=== PATIENT | female | born 1940 | race African-American/Black ===

== ENCOUNTER 2019-03-03 13:10 | Inpatient (IN) | payer OTHER, MEDICAID ==
[~2019-03-03] VITALS: Ht 154.9 cm; Wt 71.7 kg
[~2019-03-03 13:10] MED LIST: ACET-2619 PO; ALBU3SOL83 IH; APIX2.5 PO; ASCO500T45 PO; BISA-213 RC; CLON0.1T42 PO; D50SYR IVP; Foam Dressing TP; GLU1I IVP; GLUC-805 FS; HUMSLIDE SUBQ; HYDR-1098 PO; HYDR-5122 PO; LACT10CA PO; MAGN400S60 PO; METO25TA PO; METR500T1 PO; MIRABULK PO; OSC500 PO; ROC1PM IV; VITA1TAB44 PO
[2019-03-03 13:17] VITALS: BP 194/77
--- NOTE | 2019-03-03 13:51 | NUR ---
PATIENT IS BROUGHT TO ED FROM DIALYSIS CENTER. PT HAS SCHEDULED DIALYSIS TODAY BUT UNABLE TO ACCESS PORT ON L ANTERIOR CHEST WALL. SKIN IS PINK/WARM/DRY; AAOX4; LUNGS CLEAR BL; HR EVEN AND REGULAR; PT DENIES ANY FEVER, CP, SOB, OR COUGH AT THIS TIME; PATIENT STATES PAIN OF 0/10 AT THIS TIME; VSS; PATIENT POSITIONED FOR COMFORT; HOB ELEVATED; BEDRAILS UP X2; BED DOWN. ER MD MADE AWARE OF PT STATUS. PMH:DM, ERSD,HTN, CAD
[2019-03-03 14:03] LABS: BASOPHILS # (AUTO) 0.1 K/uL (0.00-0.22); BASOPHILS % (AUTO) 0.8 % (0.0-2.0); EOSINOPHILS # (AUTO) 0.2 K/uL (0-0.4); EOSINOPHILS % (AUTO) 2.1 % (0.0-4.0); HEMATOCRIT 36.9 % (36-48); HEMOGLOBIN 11.8 g/dL (12.0-16.0); LYMPHOCYTES # (AUTO) 2.2 K/uL (2.5-16.5); LYMPHOCYTES % (AUTO) 22.6 % (20.5-51.1); MEAN CORPUSCULAR HEMOGLOBIN 30 pg (27-31); MEAN CORPUSCULAR HGB CONC 32 g/dL (33-37); MEAN CORPUSCULAR VOLUME 94.1 fL (80-94); MONOCYTES # (AUTO) 0.8 K/uL (0.8-1.0); MONOCYTES % (AUTO) 8.8 % (1.7-9.3); NEUTROPHILS # (AUTO) 6.3 K/uL (1.8-7.7); NEUTROPHILS % (AUTO) 65.7 % (42.2-75.2); PLATELET COUNT (AUTO) 353 K/uL (140-450); RED BLOOD CELL COUNT(AUTO) 3.92 MIL/uL (4.20-5.40); RED CELL DISTRIBUTION WIDTH 17.3 % (11.6-13.7); WHITE BLOOD COUNT (AUTO) 9.6 K/uL (4.8-10.8)
[2019-03-03 14:17] LABS: ANION GAP 13.7 (8-16); CHLORIDE 106 mmol/L (98-107); CREATININE 3.6 mg/dL (0.6-1.3); GLUCOSE 109 mg/dL (74-106); POTASSIUM 4.7 mmol/L (3.5-5.1); PROTHROMBIN TIME 9.1 secs (10.8-13.4); SODIUM SERUM 141 mmol/L (136-145); UREA NITROGEN, BLOOD 40 mg/dL (7-18)
[2019-03-03 14:22] LABS: ALBUMIN 2.3 g/dL (3.4-5.0); ASPARTATE AMINOTRANSFERASE 16 U/L (15-37); TOTAL BILIRUBIN 0.2 mg/dL (0.0-1.0)
[2019-03-03] MEDS ORDERED: ACETAMINOPHEN 325 MG TAB PO PRN (15:00)
[2019-03-03] MEDS ORDERED: HYDROcodone/APAP 7.5/325 MG 1 TAB PO PRN (15:00)
[2019-03-03] MEDS ORDERED: ONDANSETRON 4 MG/2 ML VIAL IVP PRN (15:00)
[2019-03-03] MEDS ORDERED: NACL 0.9% 1,000 ML IV SCH (15:00)
[2019-03-03] MEDS ORDERED: BISA-213 RC (15:21)
[2019-03-03] MEDS ORDERED: HEPA500056 (15:21)
[2019-03-03] MEDS ORDERED: HYDR-5122 PO (15:40)
[2019-03-03] MEDS ORDERED: MIRABULK PO (15:40)
[2019-03-03] MEDS ORDERED: INSU100S53 SC ×2 (15:40→20:35)
[2019-03-03] MEDS ORDERED: VITA1TAB44 PO (15:40)
[2019-03-03] MEDS ORDERED: MAGN400S60 PO (15:40)
[2019-03-03] MEDS ORDERED: POLY17PD46 PO (15:40)
[2019-03-03] MEDS ORDERED: LISI-420 PO (15:40)
[2019-03-03] MEDS ORDERED: LYR50 PO (15:40)
[2019-03-03] MEDS ORDERED: PHO667 PO (15:40)
[2019-03-03] MEDS ORDERED: cloNIDine 0.1 MG TAB PO SCH (16:00)
[2019-03-03] MEDS ORDERED: METOPROLOL 5 MG/5 ML VIAL IV SCH (16:00)
[2019-03-03 16:02] LABS: FREE T4 (FREE THYROXINE) 0.82 ng/dL (0.76-1.46); MAGNESIUM 2.1 mg/dL (1.8-2.4); PHOSPHORUS 3.3 mg/dL (2.5-4.9); THYROID STIMULATING HORMONE 2.01 uIU/mL (0.34-3.74)
[2019-03-03 16:22] VITALS: BP 147/64
--- NOTE | 2019-03-03 16:22 | NUR ---
PATIENT ARRIVED UNIT VIA GURNEY ACCOMPANIED BY ER NURSE WILLIAM. PATIENT IS AAOX4, SPEAKS [place]. RESPIRATION EVEN AND UNLABORED ON RA. DENIED PAIN, DIZZINESS AND SOB. STATED THAT SHE IS VERY HUNGRY SINCE SHE HASN'T EAT FROM LUNCH. NO SIGNS OF DISTRESS NOTED. IV ON R AC 22G, DATED, CLEAN AND INTACT, SL. PATIENT IS CONTINENT AND SAID "I USED DIAPER AT HOME SINCE I DONT HAVE MY LEGS. I CAN'T WALK TO THE BATHROOM." DIALYSIS DEVICE ON L CHEST, SIGN POSTED FOR NO VENIPUNCTURE AND BLOOD PRESSURES ON L ARM. PATIENT HAS CLOSED WOUNDS ON BUTTOCK, L AND RIGHT THIGHS, PICTURES TAKEN. PATIENT HAS BOTH LEGS AMPUTATION. ORIENTED PATIENT TO THE ROOM, DEMONSTRATED TO PATIENT HOW TO USE THE CALL LIGHT, LIGHT REMOTE, BED REMOTE, TELEPHONE, AND TV. MRSA NARES TAKEN AND VITAL SIGNS TAKEN. SAFETY MEASURES IN PLACE. BED IN LOW POSITION AND CALL LIGHT WITHIN REACH. FALL RISK PROTOCOL IN PLACE AND BED ALARM ACTIVATED. INSTRUCTED PATIENT TO USE THE CALL LIGHT FOR ANY ASSISTANCE AND PATIENT SAID OK.
--- NOTE | 2019-03-03 16:26 | NUR ---
STARTED IVF PER MD ORDER, PATIENT TOLERATED WELL. PATIENT IS RESTING ON BED AT THIS TIME. SAFETY MEASURES IN PLACE. BED IN LOW POSITION AND CALL LIGHT WITHIN REACH. INSTRUCTED PATIENT TO USE THE CALL LIGHT FOR ANY ASSISTANCE AND PATIENT WAS AWARE.
--- NOTE | 2019-03-03 16:28 | NUR ---
ADPatient will be admitted to care of DR. RODRIGUEZ. Admited to MS. Will go to room 117. Belongings list completed. Report to CORINNA.
--- NOTE | 2019-03-03 16:40 | NUR ---
RECEIVED CRITICAL LAB FOR TROPONIN 0.[address] NOLASCO WAS AWARE AND NO ORDER RECEIVED AT THIS TIME.
--- NOTE | 2019-03-03 17:35 | NUR ---
PATIENT HAS 1 SOFT MODERATE YELLOW BM. INDUSTRIAL CLEANER CLEANED PATIENT. APPLIED Z-GUARD ON BUTTOCK, L AND R THIGHS, COVERED WITH OPTIFOAMS. WOUND CARE EDUCATION PROVIDED TO PATIENT AND PATIENT VERBALIZED UNDERSTANDING. PATIENT IS RESTING ON BED AT THIS TIME. NO SIGNS OF DISTRESS NOTED. SAFETY MEASURES IN PLACE. BED IN LOW POSITION AND CALL LIGHT WITHIN REACH. BED ALARM ACTIVATED. INSTRUCTED PATIENT TO USE THE CALL LIGHT FOR ANY ASSISTANCE AND PATIENT WAS AWARE.
[2019-03-03] MEDS ORDERED: hydrALAZINE 20 MG/ML VIAL IVP SCH (18:00)
--- NOTE | 2019-03-03 18:30 | NUR ---
CHECKED BP PRIOR TO MED ADMINISTER, BP 136/55, PULSE 72, ADMINISTERED MED VIA IVP PER MD ORDER, MED EDUCATION PROVIDED TO PATIENT AND PATIENT VERBALIZED UNDERSTANDING. PATIENT IS TALKING TO CLARIBEL BURKS BY BEDSIDE. NO SIGNS OF DISTRESS NOTED. SAFETY MEASURES IN PLACE. BED IN LOW POSITION AND CALL LIGHT WITHIN REACH. INSTRUCTED PATIENT TO USE THE CALL LIGHT FOR ANY ASSISTANCE AND PATIENT WAS AWARE.
[2019-03-03] MEDS ORDERED: DEXTROSE 50% 50 ML SYR IVP PRN (19:15)
--- NOTE | 2019-03-03 19:24 | NUR ---
ENDORSED PATIENT AT BEDSIDE TO FRONT TENDER NURSE FOR CONTINUITY OF CARE. PATIENT AWAKE AND TALKING TO CLARIBEL BURKS AT BEDSIDE. NO SIGNS OF DISTRESS NOTED. PATIENT IS IN STABLE CONDITION. SAFETY MEASURES IN PLACE. BED IN LOW POSITION AND CALL LIGHT WITHIN REACH.
--- NOTE | 2019-03-03 19:30 | NUR ---
RECEIVED FROM AM RN IN BED AWAKE AND ALERT. WATCHING TV. CARE PLANS FOR THE NIGHT DISCUSSED WITH HER. CALL LIGHT IWTH IN REACH FOR ANY HELP SHE MAY NEED. ABLE TO VERBALIZE SIMPLE NEEDS IN [place]. MALE VISITOR PRESENT. NO COMPLAINTS DONE AT THIS TIME.
[2019-03-03] MEDS ORDERED: HYDR-1098 PO (20:35)
[2019-03-03] MEDS ORDERED: CLON0.1T42 PO (20:35)
[2019-03-03] MEDS ORDERED: cloNIDine 0.1 MG TAB PO PRN (20:40)
[2019-03-03] MEDS ORDERED: NON-FORMULARY ITEM (Hydralazine HCl (Hydralazine Hcl) 100 MG) PO SCH (21:00)
[2019-03-03] MEDS: BLOOD GLUCOSE MONITORING 1 DEV DEV FS SCH (21:25)
[2019-03-03] MEDS: METOPROLOL 25 MG TAB PO SCH (21:26)
[2019-03-03] MEDS: PREGABALIN 50 MG CAP PO SCH (21:26)
[2019-03-03] MEDS: DOCUSATE SODIUM 100 MG GELCAP PO SCH (21:26)
[2019-03-03] MEDS: HYDRAGUARD CREAM TP SCH (21:27)
[2019-03-03] MEDS: INSULIN LISPRO SLIDING SCALE 100 UNITS/ML VIAL SUBQ PRN (21:32)
[2019-03-03] MEDS: INSULIN LANTUS 100 UNITS/ML 10 ML VIAL SUBQ SCH (21:34)
[2019-03-03 21:42] VITALS: BP 118/57
--- NOTE | 2019-03-03 23:25 | NUR ---
EKG DONE AT THIS TIME. PT. CLEANED UP FROM BM . TOTAL CARE RT WITH GENERALIZED WEAKNESS. WITH BILATERAL BKA. ABLE TO VERBALIZE SIMPLE NEEDS. ABLE TO USE CALL LIGHT FOR HELP.
[2019-03-04] MEDS: hydrALAZINE 25 MG TAB PO SCH ×4 (00:47→22:50)
[2019-03-04 00:48] VITALS: BP 133/49
--- NOTE | 2019-03-04 00:54 | NUR ---
P.O. MEDICATION TAKEN WELL. NO COMPLAINTS OF ANY PAIN DONE THIS SHIFT YET. CALL LIGHT WITH IN REACH. ENCOURAGED TO CALL FOR ANY HELP SHE MIGHT NEED. PER PT. SON IS THE ONE GIVING CONSENT FOR ANY PROCEDURES DONE TO HER. LEFT MESSAGE TO CLARIBEL BURKS FOR CONSENT MD MONCADA,Janak ORDERED / TUNNEL REMOVAL AND PLACEMENT OF NEW ONE. CHARGE NURSE AWARE.
--- NOTE | 2019-03-04 03:24 | NUR ---
SLEEPING. NO RESTLESSNESS. CALL LIGHT AT BEDSIDE WITH IN REACH.
[2019-03-04 05:33] VITALS: BP 144/61
[2019-03-04] MEDS: BLOOD GLUCOSE MONITORING 1 DEV DEV FS SCH ×4 (05:41→20:55)
[2019-03-04] MEDS ORDERED: DEXT 5% /NACL 0.9% 1,000 ML IV SCH (05:55)
[2019-03-04] MEDS: FAMOTIDINE 20 MG/2 ML VIAL IV SCH (06:46)
--- NOTE | 2019-03-04 07:20 | NUR ---
REPORT RECEIVED FROM NURSE SCHREIBER, PT SLEEPING, APPEARS COMFORTABLE. NO S/S OF ACUTE DISTRESS NOTED AT THIS TIME, CALL LIGHT AND PERSONAL ITEMS WITHIN EASY REACH, SAFETY AND FALL PRECAUTIONS IN PLACE, WILL CONTINUE TO MONITOR.
--- NOTE | 2019-03-04 07:30 | NUR ---
ENDORSED TO AM RN IN BED AWAKE AND ALERT. ABLE TO VERBALIZE NEEDS WELL. NO COMPLAINTS DONE .
[2019-03-04 07:31] LABS: BASOPHILS # (AUTO) 0.1 K/uL (0.00-0.22); BASOPHILS % (AUTO) 0.9 % (0.0-2.0); EOSINOPHILS # (AUTO) 0.2 K/uL (0-0.4); EOSINOPHILS % (AUTO) 2.3 % (0.0-4.0); HEMATOCRIT 33.7 % (36-48); HEMOGLOBIN 10.6 g/dL (12.0-16.0); LYMPHOCYTES # (AUTO) 1.3 K/uL (2.5-16.5); LYMPHOCYTES % (AUTO) 17.1 % (20.5-51.1); MEAN CORPUSCULAR HEMOGLOBIN 30 pg (27-31); MEAN CORPUSCULAR HGB CONC 32 g/dL (33-37); MEAN CORPUSCULAR VOLUME 94.1 fL (80-94); MONOCYTES # (AUTO) 0.8 K/uL (0.8-1.0); MONOCYTES % (AUTO) 10.3 % (1.7-9.3); NEUTROPHILS # (AUTO) 5.2 K/uL (1.8-7.7); NEUTROPHILS % (AUTO) 69.4 % (42.2-75.2); PLATELET COUNT (AUTO) 326 K/uL (140-450); RED BLOOD CELL COUNT(AUTO) 3.58 MIL/uL (4.20-5.40); RED CELL DISTRIBUTION WIDTH 17.3 % (11.6-13.7); WHITE BLOOD COUNT (AUTO) 7.5 K/uL (4.8-10.8)
[2019-03-04 08:00] VITALS: BP 147/67
[2019-03-04] MEDS: HYDRAGUARD CREAM TP SCH ×2 (08:52→22:50)
[2019-03-04] MEDS: METOPROLOL 25 MG TAB PO SCH ×2 (08:52→22:50)
[2019-03-04] MEDS: DOCUSATE SODIUM 100 MG GELCAP PO SCH ×2 (08:52→22:50)
[2019-03-04] MEDS: CALCIUM CARBONATE 500 MG TAB PO SCH (08:53)
[2019-03-04] MEDS: LISINOPRIL 20 MG TAB PO SCH (08:53)
[2019-03-04] MEDS: VIT-B COMP/VIT-C/FOLIC ACID 1 TAB PO SCH (08:53)
[2019-03-04] MEDS: PREGABALIN 50 MG CAP PO SCH ×2 (08:53→22:50)
--- NOTE | 2019-03-04 09:30 | NUR ---
PT A/O ABLE TO COMMUNICATE NEEDS, FAMILY AT BEDSIDE PT DENIES PAIN OR DISCOMFORT, NO S/S OF ACUTE DISTRESS NOTED AT THIS TIME, CALL LIGHT AND PERSONAL ITEMS WITHIN EASY REACH, SAFETY AND FALL PRECAUTIONS IN PLACE, WILL CONTINUE TO MONITOR.
[2019-03-04 09:36] LABS: CHLORIDE 106 mmol/L (98-107); MAGNESIUM 2.1 mg/dL (1.8-2.4); PHOSPHORUS 3.6 mg/dL (2.5-4.9); POTASSIUM 4.6 mmol/L (3.5-5.1); SODIUM SERUM 140 mmol/L (136-145)
[2019-03-04 09:38] LABS: GLUCOSE 130 mg/dL (74-106); UREA NITROGEN, BLOOD 47 mg/dL (7-18)
[2019-03-04] MEDS ORDERED: BUPIVACAINE-MPF/EPI 0.25% 30 ML VIAL INJ ONE (10:25)
[2019-03-04] MEDS ORDERED: LIDOCAINE/EPI MPF 1%1:200000 30 ML VIAL INJ ONE (10:25)
--- NOTE | 2019-03-04 11:30 | NUR ---
PT REMAINS A/O ABLE TO COMMUNICATE NEED, EDUCATED THE PT REGARDING RECTAL TUBE, PT AGREEABLE, RECTAL TUBE INSERTED PER ORDER W BROWN SOFT STOOL COLLECTING, PT TOLERATED PROCEDURE WELL, SKIN CARE PROVIDED. DENIES PAIN, NO S/S OF ACUTE DISTRESS NOTED AT THIS TIME, CALL LIGHT AND PERSONAL ITEMS WITHIN EASY REACH, SAFETY AND FALL PRECAUTIONS IN PLACE, WILL CONTINUE TO MONITOR.
[2019-03-04 11:39] LABS: ANION GAP 17.2 (8-16); CARBON DIOXIDE 21.4 mmol/L (21-32)
--- NOTE | 2019-03-04 11:45 | NUR ---
PT REMAINS AO ABLE TO COMMUNICATE NEEDS, TRANSPORTED OFF UNIT TO SURGICAL SERVICES VIA BED. NO S/S OF ACUTE DISTRESS NOTED AT THIS TIME.
[2019-03-04] MEDS ORDERED: ONDANSETRON 4 MG/2 ML VIAL IVP PRN (12:05)
[2019-03-04] MEDS ORDERED: BLOOD GLUCOSE MONITORING 1 DEV DEV FS SCH (12:05)
[2019-03-04] MEDS ORDERED: MIDAZOLAM 2 MG/2 ML VIAL ONE (12:09)
[2019-03-04] MEDS ORDERED: fentaNYL 0.05 MG/ML VIAL ONE (12:10)
--- NOTE | 2019-03-04 13:21 | NUR ---
PT WAS ADMITTED FROM [facility] A/[facility] WITH A DX OF DYSFUNCTIONAL TUNNEL CATH. PT HAS A HX OF ESRD, HTN CHF AND DM . DR MONCADA CONSULTED AND NEPHRO DR HSU FOLLOWING FOR HD NEEDS Addendum: 03/06/19 at 1340 by Anna Briseno DC PLANNING 03/05/19 DR MONCADA PLACED NEW RIGHT IJ TUNNELED PERM-A-CATH PLACEMENT , PLAN TO HAVE DIALYSIS TONIGHT D/C PLAN TO GO BACK TO [facility]
--- NOTE | 2019-03-04 13:32 | NUR ---
Pt returned from surgical services via bed, Pt remains A/O able to communicate needs, tunneled catheter in place to r chest, small dressing to L chest at prior cath site in place, dry and intact. Pt denies pain, denies sob, assisted to reposition for comfort. Fall and safety precaution in place, Call light and personal items within easy reach, no s/s of acute distress noted at this time. Will continue to monitor.
[2019-03-04 13:35] VITALS: BP 177/71
[2019-03-04] MEDS: NACL 0.9% 1,000 ML IV SCH (14:37)
--- NOTE | 2019-03-04 14:40 | NUR ---
PATIENT HAS BEEN SCREENED AND CATEGORIZED MODERATE NUTRITION RISK. PATIENT WILL BE SEEN WITHIN 3-5 DAYS OF ADMISSION. 03/06/19 03/08/[address]
--- NOTE | 2019-03-04 15:30 | NUR ---
Pt sleeping at this time, appears comfortable,fall and safety precautions remain in place, call light and personal items within easy reach,will continue to monitor.
[2019-03-04] MEDS: INSULIN LISPRO SLIDING SCALE 100 UNITS/ML VIAL SUBQ PRN (16:52)
[2019-03-04 17:11] VITALS: BP 108/58
--- NOTE | 2019-03-04 17:30 | NUR ---
Pt resting w her eyes closed at this time, states she is praying, no s/s of acute distress noted, fall and safety precautions remain in place, call light and personal items within easy reach, no s/s of acute distress noted at this time. Will continue to monitor.
--- NOTE | 2019-03-04 18:30 | NUR ---
HD nurse at bedside, provided with consent, orders and additional supplies as requested.
--- NOTE | 2019-03-04 19:36 | NUR ---
Pt remains awake a/o able to communicate needs. Pt denies pain or discomfort, no s/s of acute distress noted at this time. HD nurse at bedside. Safety and fall precautions maintained in place. Call light and personal items within easy reach, no s/s of acute distress noted at this time. Report endorsed to oncoming nurse
--- NOTE | 2019-03-04 19:40 | NUR ---
RECEIVED REPORT FROM AM SHIFT NURSE. PATIENT ALERT AND AWAKE. ABLE TO MAKE NEEDS KNOWN. DENIES PAIN NOR DISCOMFORT. NO ACUTE DISTRESS NOTED AT THIS TIME. HD NURSE AT BEDSIDE. HD ONGOING. SAFETY MEASURES OBSERVED. BED IN LOW POSITION. CALL LIGHT WITHIN REACH. WILL CONTINUE TO MONITOR.
[2019-03-04 20:00] VITALS: BP 126/55
--- NOTE | 2019-03-04 20:02 | NUR ---
RECEIVED PATIENT ON 1L NASAL CANNULA, PULSE OX SAT 99%. PATIENT RECEIVING DIALYSIS AT THIS TIME. NO ACUTE RESPIRATORY DISTRESS NOTED AT THIS TIME. WILL CONTINUE TO MONITOR.
--- NOTE | 2019-03-04 21:30 | NUR ---
PATIENT AWAKE IN BED. HD STILL ONGOING. HD NURSE AT BEDSIDE. NO ACUTE RESPIRATORY DISTRESS NOTED. ON 1LPM VIA NC AT 98%. WILL CONTINUE TO MONITOR.
--- NOTE | 2019-03-04 22:30 | NUR ---
HD DONE WITH 2.5 L OUTPUT PER HD NURSE.
[2019-03-04] MEDS: INSULIN LANTUS 100 UNITS/ML 10 ML VIAL SUBQ SCH (22:50)
--- NOTE | 2019-03-04 22:50 | NUR ---
PATIENT REFUSED TO TAKE ALL HER DUE MEDICATIONS INCLUDING LANTUS. BLOOD SUGAR [id number]. PATIENT JUST WANTS TO SLEEP, DOESN'T WANT TO BE BOTHERED. DR. TSANG, RESIDENT AWARE.
--- NOTE | 2019-03-04 23:00 | NUR ---
PT REFUSED TO BE TURN, REPOSITION IN BED. SHE JUST WANTS TO SLEEP FOR SHE SAID SHE GOT TIRED DUE TO THE HD MACHINE BEEN SO NOISY.
[2019-03-05] VITALS: BP 150/60
--- NOTE | 2019-03-05 00:30 | NUR ---
SLEEPING AT THIS TIME. NO S/S OF ANY DISCOMFORT NOR DISTRESS NOTED WILL CONTINUE TO MONITOR,.
--- NOTE | 2019-03-05 02:30 | NUR ---
PT AWAKE. ABLE TO REPOSITION PT FOR COMFORT. CLEANED AND KEPT DRY. RECTAL TUBE IN PLACED WITH SCANTY BROWN SOFT STOOL.
[2019-03-05 04:37] VITALS: BP 115/64
--- NOTE | 2019-03-05 04:42 | NUR ---
CHECKED PATIENT'S BLOOD PRESSURE. NOTED TO BE 115/64. DUE FOR HYDRALAZINE 100MG. DR. TSANG, RESIDENT MADE AWARE. SAID TO HOLD THE MEDICATION.
[2019-03-05] MEDS: hydrALAZINE 25 MG TAB PO SCH ×3 (04:46→21:49)
[2019-03-05] MEDS: BLOOD GLUCOSE MONITORING 1 DEV DEV FS SCH ×4 (06:14→21:46)
--- NOTE | 2019-03-05 06:14 | NUR ---
BLOOD SUGAR WAS CHECKED RESULT 66. PT IS AWAKE,ALERT AND, ORIENTED . GIVEN SOME JUICE. WILL CONTINUE TO MONITOR.
[2019-03-05] MEDS: FAMOTIDINE 20 MG/2 ML VIAL IV SCH (06:18)
--- NOTE | 2019-03-05 07:10 | NUR ---
RECEIVED BEDSIDE REPORT FROM TRIM CARPENTER NURSE, PT IS ASLEEP, NO S/S OF ACUTE DISTRESS NOTED, PT IS ON ROOM AIR. SKIN INTACT ASIDE FROM OLD HEALED SACRAL WOUND. HYDRAGUARD IS ORDERED. IV SITE IN THE R AC 20 G, SALINE LOCK. R IJ TUNNEL HD CATH NOTED, PLACED YESTERDAY BY DR MONCADA. PT HAS BILAT BKA'S. RECTAL TUBE PRESENT, SOFT BM NOTED. FALL PRECAUTIONS IN PLACE, CALL LIGHT IS WITHIN REACH.
[2019-03-05 07:17] LABS: BASOPHILS # (AUTO) 0.1 K/uL (0.00-0.22); BASOPHILS % (AUTO) 0.9 % (0.0-2.0); EOSINOPHILS # (AUTO) 0.2 K/uL (0-0.4); EOSINOPHILS % (AUTO) 1.8 % (0.0-4.0); HEMATOCRIT 32.2 % (36-48); HEMOGLOBIN 10.5 g/dL (12.0-16.0); LYMPHOCYTES # (AUTO) 1.8 K/uL (2.5-16.5); LYMPHOCYTES % (AUTO) 21.2 % (20.5-51.1); MEAN CORPUSCULAR HEMOGLOBIN 30 pg (27-31); MEAN CORPUSCULAR HGB CONC 33 g/dL (33-37); MEAN CORPUSCULAR VOLUME 93.2 fL (80-94); MONOCYTES # (AUTO) 0.9 K/uL (0.8-1.0); MONOCYTES % (AUTO) 10.5 % (1.7-9.3); NEUTROPHILS # (AUTO) 5.7 K/uL (1.8-7.7); NEUTROPHILS % (AUTO) 65.6 % (42.2-75.2); PLATELET COUNT (AUTO) 245 K/uL (140-450); RED BLOOD CELL COUNT(AUTO) 3.46 MIL/uL (4.20-5.40); RED CELL DISTRIBUTION WIDTH 17.5 % (11.6-13.7); WHITE BLOOD COUNT (AUTO) 8.6 K/uL (4.8-10.8)
--- NOTE | 2019-03-05 07:20 | NUR ---
ENDORSED PT IN STABLE CONDITION TO AM NURSE FOR CONTINUITY OF CARE.
[2019-03-05 07:28] LABS: ANION GAP 14.6 (8-16); CARBON DIOXIDE 26.4 mmol/L (21-32); CHLORIDE 103 mmol/L (98-107); CREATININE 2.8 mg/dL (0.6-1.3); GLUCOSE 81 mg/dL (74-106); SODIUM SERUM 140 mmol/L (136-145); UREA NITROGEN, BLOOD 27 mg/dL (7-18)
[2019-03-05 07:35] LABS: MAGNESIUM 1.8 mg/dL (1.8-2.4); PHOSPHORUS 2.5 mg/dL (2.5-4.9)
[2019-03-05 08:00] VITALS: BP 182/73
--- NOTE | 2019-03-05 08:49 | NUR ---
PT SEEN BY DR ROUSE
[2019-03-05] MEDS: HYDRAGUARD CREAM TP SCH ×2 (09:00→21:49)
[2019-03-05] MEDS: DOCUSATE SODIUM 100 MG GELCAP PO SCH ×2 (09:00→21:00)
[2019-03-05] MEDS: CALCIUM CARBONATE 500 MG TAB PO SCH (09:06)
[2019-03-05] MEDS: PREGABALIN 50 MG CAP PO SCH ×2 (09:06→22:02)
[2019-03-05] MEDS: VIT-B COMP/VIT-C/FOLIC ACID 1 TAB PO SCH (09:06)
[2019-03-05] MEDS: METOPROLOL 25 MG TAB PO SCH ×2 (09:06→21:50)
[2019-03-05] MEDS: LISINOPRIL 20 MG TAB PO SCH (09:07)
--- NOTE | 2019-03-05 09:26 | NUR ---
AM MEDS ADMINISTERED, PT TOLERATED WELL. SHE REFUSED THE COLACE.
--- NOTE | 2019-03-05 10:01 | NUR ---
RECEIVED A CALL FROM PT'S RACE STARTER, DR HSU, ASKING WHETHER PT HAD DIALYSIS YESTERDAY. I INFORMED HIM THAT PT HAD DIALYSIS LAST NIGHT.
--- NOTE | 2019-03-05 10:40 | NUR ---
WOUND CARE EVALUATION NOTE: REASON FOR EVALUATION: SACRAL WOUNDS SKIN ASSESSMENT DONE WITH THIS 78 Y/O FEMALE PT ADMITTED FROM SNF TO [facility] WITH INITIAL DX NON-FUNCTION DIALYSIS CATHETER. PAST MEDICAL HX OF HTN, HLD, CHF, DMII, ESRD on HD AND PT. ADMITTED WITH MULTIPLE PRESSURE ULCERS. ALL ABOVE INFORMATION OBTAINED FROM ADMISSION H&P. AND PT. PT IS AWAKE. SKIN IS WARM AND DRY. PT HAS RECTAL TUBING AND LEAKAGE NOTICE, PRIMARY RN NOTIFIED. PLAN OF CARE DISCUSSED WITH PRIMARY RN AND PT. PT. VERBALIZING UNDERSTANDING. INTEGUMENTARY: -DRY SKIN TO ABDOMINAL WALL AND BILATERAL THIGHS, -BILATERAL BKA STUMPS HEALED SCARS DRY AND CLEAN. -RIGHT LATERAL NECK 2 SUTURES, DRY AND IN PLACE -RIGHT CHEST CATH. DRESSING DCI -MULTIPLE PRESSURE ULCERS REMODELING STAGE WITH IRRITATION ON ALL CLOSED WOUND 100% PINK SCARS-REMODELING STAGE: SITE 1. SACRALCOCCYX (6X7CM), SITE 2. RIGHT ISCHIUM (4X3CM) AND SITE 3. LEFT ISCHIUM (5X6CM) AREAS MOIST WITH IRRITATION. JAMILAH WOUND SKIN MOIST, INTACT RECOMMENDATIONS: -CLEANS WITH NS, PAT DRY, APPLY OPTIFOAM TO SACRALCOCCYX, RIGHT ISCHIUM AND LEFT ISCHIUM QD AND PRN IF SOILING -PLEASE KEEP SKIN DRY AND CLEAN AT ALL TIMES, CHECK RECTAL TUBING PRN FOR POSITION AND LEACKAGE. -OFFLOAD BILATERAL THIGHS BY PLACING PILLOWS UNDER CALVES UNLESS OTHERWISE CONTRAINDICATED -PRESSURE REDISTRIBUTION SURFACE THERAPY BY POSITION WEDGE/PILLOWS -TURN AND REPOSITION Q2H, OFFLOAD SACRALCOCCYX /ISCHIUM BY TURNING RIGHT AND LEFT Q2 HOURS -CONTINUE TO FOLLOW RD RECOMMENDATIONS ALL ABOVE RECOMMENDATIONS DISCUSSED WITH PRIMARY RN PLEASE CONTACT WOUND CARE NURSE FOR ANY QUESTION AND CHANGE OF WOUND CONDITION.
--- NOTE | 2019-03-05 11:40 | NUR ---
REASSESSED PT'S BP, 165/76 AT THIS TIME. Addendum: 03/05/19 at 1154 by Yenifer Duque RN DR ROUSE IS AWARE
[2019-03-05] MEDS: FOAM DRESSING TP SCH (13:00)
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
--- NOTE | 2019-03-05 13:58 | NUR ---
PT RESTING COMFORTABLY IN BED, NO S/S OF ACUTE DISTRESS, PT ATE ABOUT 75% OF HER LUNCH
[2019-03-05] MEDS: NACL 0.9% 1,000 ML IV SCH (14:07)
[2019-03-05] MEDS ORDERED: Z-GUARD PASTE TP ONE (15:20)
--- NOTE | 2019-03-05 15:35 | NUR ---
P.T. NOTES P.T. EVAL COMPLETED; Pt NON AMBULATORY, USES [facility] FOR W/C TRANSFERS IN SNF; ENDORSED TO NURSING.
--- NOTE | 2019-03-05 15:51 | NUR ---
PT CLEANED UP AND CHANGED. PT'S STOOL NOTED TO BE THICK AND PASTY, NOT LOOSE. RECTAL BAG REMOVED, IT WAS NOT PERFORMING ITS FUNCTION. PT ALSO C/O THE RECTAL BAG BEING VERY UNCOMFORTABLE AND WANTED IT OUT. BED LINENS CHANGED. Z-GUARD AND OPTIFOAM DRESSINGS APPLIED ONTO THE DRY WOUND SCARS. PT TOLERATED WELL.
[2019-03-05 16:00] VITALS: BP 187/73
--- NOTE | 2019-03-05 16:45 | NUR ---
PT'S BP IS 187/73. PRN CLONIDINE 0.1 MG PO ADMINISTERED. WILL REASSESS BP IN AN HOUR. Addendum: 03/05/19 at 1652 by Yenifer Duque RN DR RASHEED IS AWARE
--- NOTE | 2019-03-05 17:57 | NUR ---
BP RECHECK 146/64 AT THIS TIME. PT EATING DINNER AND VISITING WITH A FAMILY MEMBER. NO S/S OF ACUTE DISTRESS.
--- NOTE | 2019-03-05 18:17 | NUR ---
PAGED DR HSU TO ASK IF PT NEEDS TO HAVE DIALYSIS TOMORROW. WAITING FOR CALL BACK. Addendum: 03/05/19 at 1933 by Yenifer Duque RN DR HSU DID NOT RETURN MY PAGE. ENDORSED TO INVESTIGATIVE RESEARCH SPECIALIST NURSE. RESIDENT IS AWARE.
--- NOTE | 2019-03-05 19:25 | NUR ---
RECEIVED PT ON RA, SP02 98% WITH CLEAR BREATH SOUNDS. NO RESPIRATORY DISTRESS NOTED. WILL CONTINUE TO MONITOR PT.
--- NOTE | 2019-03-05 19:25 | NUR ---
ENDORSED PT TO DIRECTOR CORRECTIONAL AGENCY NURSE IN STABLE CONDITION.
--- NOTE | 2019-03-05 19:40 | NUR ---
SEEN PT AWAKE, ALERT AND ORIENTED RESTING IN BED. CALL LIGHT W/IN REACH.
--- NOTE | 2019-03-05 21:25 | NUR ---
SPOKE TO DIALYSIS NURSE REGARDING IF THERE'S ORDER FOR DIALYSIS IN AM. INFORMED HER THERE'S NO ORDER YET AND THEY CALLED DR HSU AND NO CALL BACK YET BUT RESIDENTS AWARE AND SAID THEY'LL FOLLOW UP.
[2019-03-05 21:40] VITALS: BP 159/58
--- NOTE | 2019-03-05 21:40 | NUR ---
SEEN PT AWAKE, ALERT AND ORIENTED WATCHING TV. INITIAL ASSESSMENT DONE. VITAL SIGNS CHECKED. IVF INFUSING WELL. PT DENIES ANY DISCOMFORT. MEDICATIONS GIVEN ONE BY ONE PER PT'S REQUEST W/ APPLE JUICE FOR SMALL PILLS AND APPLE SAUCE FOR BIG PILLS. TEACHINGS. PT TOLERATED MEDICATION WELL. PT REFUSED TO BE REPOSITIONED RIGHT NOW. CALL LIGHT W/IN REACH.
[2019-03-05] MEDS: INSULIN LISPRO SLIDING SCALE 100 UNITS/ML VIAL SUBQ PRN (21:58)
[2019-03-05] MEDS: INSULIN LANTUS 100 UNITS/ML 10 ML VIAL SUBQ SCH (22:00)
--- NOTE | 2019-03-06 00:35 | NUR ---
SEEN PT STILL AWAKE. ASKED PT IF SHE WANTS TO BE TURNED. SHE SAID "OK". PT SAID SHE ALSO NEEDS TO BE CHANGED. STEWART MARTE CAME AND THE MOMENT PT TURNED, PT HAD BROWN, LOOSE BM ON GOING FOR A FEW MINUTES AND IN BETWEEN PT COMPLAINING OF PAIN AND DISCOMFORT AND WANTS TO BE DONE. INFORMED PT THAT SHE'S STILL GOING AND NEEDS TO BE CLEANED FIRST. PT KEEP MOANING AND GROANING AND FINALLY, BM STOPPED. PERICARE RENDERED. PT REPOSITIONED ON HER RIGHT SIDE FOR NOW. WILL CONTINUE TO MONITOR.
--- NOTE | 2019-03-06 02:05 | NUR ---
SEEN PT ASLEEP. TOLD PT SHE NEEDS TO BE REPOSITIONED. PT GOT UPSET AND REFUSED. TEACHINGS PROVIDED ABOUT REPOSITIONING BUT STILL REFUSED. WILL CONTINUE TO MONITOR.
[2019-03-06 04:40] VITALS: BP 170/70
--- NOTE | 2019-03-06 04:40 | NUR ---
SEEN PT AWAKE, HAVING HER AM CARE. PT HAD ANOTHER LOOSE BM. CREAM APPLIED AND DRESSING REINFORCED. PT REPOSITIONED FOR COMFORT. VITAL SIGNS CHECKED. UC=265/70. PT GIVEN HYDRALAZINE ORDERED. TEACHINGS PROVIDED. PT KEPT COMFORTABLE.
[2019-03-06] MEDS: hydrALAZINE 25 MG TAB PO SCH ×2 (04:43→13:00)
[2019-03-06 06:00] VITALS: BP 159/60
--- NOTE | 2019-03-06 06:00 | NUR ---
SEEN PT AWAKE. TALENT SOURCING SPECIALIST JUST HUNTER AM LABS. BP RECHECKED:159/60. PT DENIES ANY DISCOMFORT.
[2019-03-06] MEDS: BLOOD GLUCOSE MONITORING 1 DEV DEV FS SCH ×2 (06:55→11:30)
[2019-03-06] MEDS: FAMOTIDINE 20 MG/2 ML VIAL IV SCH (06:56)
--- NOTE | 2019-03-06 06:59 | NUR ---
PT'S BLOOD SUGAR CHECKED:72. WILL GIVE APPLE JUICE. PT REPOSITIONED ON HER BACK. IV PEPCID GIVEN ORDERED.
--- NOTE | 2019-03-06 07:03 | NUR ---
WILL ENDORSE CARE TO DAYSHIFT NURSE.
--- NOTE | 2019-03-06 07:04 | NUR ---
RECEIVED REPORT FROM ASSISTANT SALES MANAGER NURSE ALVA FOR CONTINUITY OF CARE. RESPIRATIONS EVEN AND UNLABORED, ROOM AIR. IV INTACT AND PATENT. SAFETY MEASURES IN PLACE. BED IN LOW POSITION. BED ALARM ON. CALL LIGHT AT BEDSIDE. WILL CONTINUE TO MONITOR.
[2019-03-06 07:18] LABS: BASOPHILS # (AUTO) 0.1 K/uL (0.00-0.22); BASOPHILS % (AUTO) 1.3 % (0.0-2.0); EOSINOPHILS # (AUTO) 0.2 K/uL (0-0.4); EOSINOPHILS % (AUTO) 2.5 % (0.0-4.0); HEMATOCRIT 32.2 % (36-48); HEMOGLOBIN 10.2 g/dL (12.0-16.0); LYMPHOCYTES # (AUTO) 1.6 K/uL (2.5-16.5); LYMPHOCYTES % (AUTO) 24.6 % (20.5-51.1); MAGNESIUM 1.8 mg/dL (1.8-2.4); MEAN CORPUSCULAR HEMOGLOBIN 30 pg (27-31); MEAN CORPUSCULAR HGB CONC 32 g/dL (33-37); MEAN CORPUSCULAR VOLUME 93.3 fL (80-94); MONOCYTES # (AUTO) 0.7 K/uL (0.8-1.0); MONOCYTES % (AUTO) 11.5 % (1.7-9.3); NEUTROPHILS # (AUTO) 3.8 K/uL (1.8-7.7); NEUTROPHILS % (AUTO) 60.1 % (42.2-75.2); PHOSPHORUS 3.4 mg/dL (2.5-4.9); PLATELET COUNT (AUTO) 250 K/uL (140-450); RED BLOOD CELL COUNT(AUTO) 3.45 MIL/uL (4.20-5.40); RED CELL DISTRIBUTION WIDTH 17.1 % (11.6-13.7); WHITE BLOOD COUNT (AUTO) 6.3 K/uL (4.8-10.8)
[2019-03-06 07:21] LABS: ANION GAP 15.4 (8-16); CHLORIDE 103 mmol/L (98-107); CREATININE 3.4 mg/dL (0.6-1.3); GLUCOSE 70 mg/dL (74-106); POTASSIUM 4.4 mmol/L (3.5-5.1); SODIUM SERUM 138 mmol/L (136-145); UREA NITROGEN, BLOOD 34 mg/dL (7-18)
[2019-03-06] MEDS: METOPROLOL 25 MG TAB PO SCH (09:00)
[2019-03-06] MEDS: LISINOPRIL 20 MG TAB PO SCH (09:00)
[2019-03-06] MEDS: DOCUSATE SODIUM 100 MG GELCAP PO SCH (09:00)
[2019-03-06] MEDS: PREGABALIN 50 MG CAP PO SCH (09:13)
[2019-03-06] MEDS: HYDRAGUARD CREAM TP SCH (09:14)
[2019-03-06] MEDS: VIT-B COMP/VIT-C/FOLIC ACID 1 TAB PO SCH (09:14)
[2019-03-06] MEDS: CALCIUM CARBONATE 500 MG TAB PO SCH (09:14)
--- NOTE | 2019-03-06 09:24 | NUR ---
GAVE ORDERED DUE MEDICATIONS AT THIS TIME. PT IN STABLE CONDITION.
--- NOTE | 2019-03-06 10:07 | NUR ---
CHANGED, CLEANED AND REPOSITIONED PT. PT TOLERATED WELL. BED IN LOW POSITION. BED ALARM ON. CALL LIGHT AT BEDSIDE. WILL CONTINUE TO MONITOR.
--- NOTE | 2019-03-06 12:10 | NUR ---
Discharge Note: Clinicals were faxed to [facility]. ADAM contacted Sofi in admissions and Sofi stated that patient will be accepted in Room 16 Bed B [phone]. Per Sofi, patient's attending physician will be Dr. Ocampo. ADAM contacted [facility] for transportation. Transportation will arrive at 4:00PM through [employer]. Transportation Ref#[id number]. ADAM informed patient's nurse Cindy. No further needs identified.
[2019-03-06] MEDS: FOAM DRESSING TP SCH (13:05)
--- NOTE | 2019-03-06 13:08 | NUR ---
PT LYING IN BED FINISHING EATING LUNCH AT THIS TIME. PT IN STABLE CONDITION. BED IN LOW POSITION. BED ALARM ON. CALL LIGHT AT BEDSIDE. WILL CONTINUE TO MONITOR.
--- NOTE | 2019-03-06 13:48 | NUR ---
Discharge Planning Note: Padmaja from [facility] came to case management/social work administrator office and informed me they cannot accept patient today after all. She stated they are renovating patient's room. Padmaja stated they can accept patient tomorrow 03/07/19, made aware. I called and spoke with Aletha from [facility] [employer] Ref#[id number] , I requested to cancel transportation, Hands And Dial Inspector Anna made aware.
[2019-03-06] MEDS: NACL 0.9% 1,000 ML IV SCH (13:55)
--- NOTE | 2019-03-06 14:00 | NUR ---
GAVE REPORT TO LADY STAFF Pappas AT [facility]. ALL QUESTIONS ANSWERED AT THIS TIME.
--- NOTE | 2019-03-06 14:10 | NUR ---
Discharge Planning Note: Padmaja from [facility] came to case management/manager social media office once again this time she stated they can accept patient after all today because renovations done on patient's room at [facility] will be completed today before patient arrives. I called and spoke with Bina from [facility] [employer] Ref#[id number] , [employer] will order picker/assembler patient today at 5pm, patient's nurse Cindy made aware.
--- NOTE | 2019-03-06 15:03 | NUR ---
PT CHANGED AND CLEANED AT THIS TIME TO PREPARE FOR TRANSPORT TO [facility]. PT TOLERATED WELL. BED IN LOW POSITION. BED ALARM ON. CALL LIGHT AT BEDSIDE. WILL CONTINUE TO MONITOR.
[2019-03-06 16:00] VITALS: BP 155/72
--- NOTE | 2019-03-06 16:45 | NUR ---
GAVE DISCHARGE INSTRUCTIONS, PT VERBALIZED UNDERSTANDING. IV REMOVED, LUMEN INTACT. ID BAND REMOVED. TRANSPORT INSTRUCTIONS GIVEN TO TRANSPORT TEAM. ALL QUESTIONS ANSWERED AT THIS TIME. PT PLACED ON [place] IN STABLE CONDITION.
[2019-03-07] MEDS ORDERED: EPOETIN ALFA 10,000 UNITS/ML VIAL SUBQ SCH (09:00)
== END 2019-03-06 18:45 | DRG 280 ==
LOC: MED 13:10 → MTU 15:00
PROVIDERS: ADMIT General Practice; ATTEND General Practice
PROC: 0JPVXXZ Removal of Tunneled Vascular Access Device from Upper Extremity Subcutaneous Tissue and Fascia, External Approach (ICD-10-PCS; 2019-03-04)
PROC: 0JH60XZ Insertion of Tunneled Vascular Access Device into Chest Subcutaneous Tissue and Fascia, Open Approach (ICD-10-PCS; 2019-03-04)
PROC: 02PYX3Z Removal of Infusion Device from Great Vessel, External Approach (ICD-10-PCS; 2019-03-04)
PROC: 02HV33Z Insertion of Infusion Device into Superior Vena Cava, Percutaneous Approach (ICD-10-PCS; 2019-03-04)
PROC: B548ZZA Ultrasonography of Superior Vena Cava, Guidance (ICD-10-PCS; 2019-03-04)
PROC: B5181ZA Fluoroscopy of Superior Vena Cava using Low Osmolar Contrast, Guidance (ICD-10-PCS; 2019-03-04)
PROC: 5A1D70Z Performance of Urinary Filtration, Intermittent, Less than 6 Hours Per Day (ICD-10-PCS; principal; 2019-03-04 11:30)
DX: T82.898A Other specified complication of vascular prosthetic devices, implants and grafts, initial encounter (principal); I50.43 Acute on chronic combined systolic (congestive) and diastolic (congestive) heart failure; I21.A1 Myocardial infarction type 2; N17.0 Acute kidney failure with tubular necrosis; N18.6 End stage renal disease; I13.2 Hypertensive heart and chronic kidney disease with heart failure and with stage 5 chronic kidney disease, or end stage renal disease; E11.22 Type 2 diabetes mellitus with diabetic chronic kidney disease; Z99.2 Dependence on renal dialysis; D64.9 Anemia, unspecified; E11.51 Type 2 diabetes mellitus with diabetic peripheral angiopathy without gangrene; E78.5 Hyperlipidemia, unspecified; I25.2 Old myocardial infarction; I45.10 Unspecified right bundle-branch block; M19.90 Unspecified osteoarthritis, unspecified site; I16.0 Hypertensive urgency; L89.152 Pressure ulcer of sacral region, stage 2; E11.40 Type 2 diabetes mellitus with diabetic neuropathy, unspecified; D63.8 Anemia in other chronic diseases classified elsewhere; Z83.3 Family history of diabetes mellitus; Z87.440 Personal history of urinary (tract) infections; Z89.511 Acquired absence of right leg below knee; Z89.512 Acquired absence of left leg below knee; Z90.49 Acquired absence of other specified parts of digestive tract; Z90.710 Acquired absence of both cervix and uterus; Z95.1 Presence of aortocoronary bypass graft; Z88.8 Allergy status to other drugs, medicaments and biological substances; Z88.0 Allergy status to penicillin; Z91.013 Allergy to seafood; Y83.8 Other surgical procedures as the cause of abnormal reaction of the patient, or of later complication, without mention of misadventure at the time of the procedure; Y92.89 Other specified places as the place of occurrence of the external cause
CPT/HCPCS: 36415; 71045; 80048; 80053; 82150; 82948; 83036; 83690; 83735; 83880; 84100; 84439; 84443; 84484; 85025; 85610; 85730; 87081; 93005; 93970; 96374; 97163-GP; 99285; C1750; C1894; J0360; J1644; J1815; J2001; J2250; J2405; J3010; J3490; J7030; J7042; Q0092

== ENCOUNTER 2019-04-06 19:36 | Emergency (ER) | payer OTHER, MEDICAID ==
[~2019-04-06] VITALS: Ht 165.1 cm; Wt 70.3 kg
[2019-04-06 19:36] VITALS: BP 181/81
[~2019-04-06 19:36] MED LIST changes: -ACET-2619 PO; -ALBU3SOL83 IH; -APIX2.5 PO; -ASCO500T45 PO; -BISA-213 RC; -D50SYR IVP; -Foam Dressing TP; -GLU1I IVP; -GLUC-805 FS; -HUMSLIDE SUBQ; -HYDR-5122 PO; +INSU100S53 SC; -LACT10CA PO; +LISI-420 PO; +LYR50 PO; -MAGN400S60 PO; -METR500T1 PO; -MIRABULK PO; +POLY17PD46 PO; -ROC1PM IV
[2019-04-06] MEDS: LIDOCAINE 5% 1 EA PATCH TP STA (20:07)
[2019-04-06 20:38] LABS: BASOPHILS # (AUTO) 0.1 K/uL (0.00-0.22); BASOPHILS % (AUTO) 0.9 % (0.0-2.0); EOSINOPHILS # (AUTO) 0.3 K/uL (0-0.4); EOSINOPHILS % (AUTO) 3.8 % (0.0-4.0); HEMATOCRIT 33.7 % (36-48); HEMOGLOBIN 10.7 g/dL (12.0-16.0); LYMPHOCYTES # (AUTO) 1.9 K/uL (2.5-16.5); LYMPHOCYTES % (AUTO) 23.3 % (20.5-51.1); MEAN CORPUSCULAR HEMOGLOBIN 30 pg (27-31); MEAN CORPUSCULAR HGB CONC 32 g/dL (33-37); MEAN CORPUSCULAR VOLUME 94.3 fL (80-94); MONOCYTES # (AUTO) 0.8 K/uL (0.8-1.0); MONOCYTES % (AUTO) 9.8 % (1.7-9.3); NEUTROPHILS % (AUTO) 62.2 % (42.2-75.2); PLATELET COUNT (AUTO) 290 K/uL (140-450); RED BLOOD CELL COUNT(AUTO) 3.57 MIL/uL (4.20-5.40); RED CELL DISTRIBUTION WIDTH 17.8 % (11.6-13.7)
[2019-04-06] MEDS ORDERED: GABAPENTIN 100 MG CAP ONE ×2 (20:49→21:10)
[2019-04-06] MEDS ORDERED: LIDOCAINE JELLY 2% 30 ML TUBE TP ONE (21:02)
[2019-04-06] MEDS ORDERED: LIDOCAINE/PRILOCAINE 2.5% 5 GM TUBE TP ONE (21:02)
[2019-04-06] MEDS: GABAPENTIN 300 MG CAP PO STA (21:18)
[2019-04-06] MEDS: LIDOCAINE/PRILOCAINE 2.5% 5 GM TUBE TP ONE ×2 (21:29)
[2019-04-06 21:43] LABS: ANION GAP 17.3 (8-16); CARBON DIOXIDE 22.8 mmol/L (21-32); CHLORIDE 105 mmol/L (98-107); GLUCOSE 109 mg/dL (74-106); POTASSIUM 4.1 mmol/L (3.5-5.1); SODIUM SERUM 141 mmol/L (136-145); UREA NITROGEN, BLOOD 36 mg/dL (7-18)
[2019-04-06 21:46] LABS: CREATININE 4.6 mg/dL (0.6-1.3)
[2019-04-06 21:47] LABS: ALBUMIN 2.9 g/dL (3.4-5.0); AMYLASE 77 U/L (25-115); ASPARTATE AMINOTRANSFERASE 8 U/L (15-37); LIPASE 116 U/L (73-393); TOTAL BILIRUBIN 0.3 mg/dL (0.0-1.0)
[2019-04-06 23:23] LABS: APPEARANCE,URINE CLEAR (CLEAR); BILIRUBIN,URINE NEGATIVE (NEGATIVE); BLOOD, URINE 1+ (NEGATIVE); COLOR,URINE YELLOW (YELLOW); LEUKOCYTE ESTERASE ,URINE 3+ (NEGATIVE); NITRITE, URINE NEGATIVE (NEGATIVE); UGLUCOSE NEGATIVE (NEGATIVE)
[2019-04-07 00:05] LABS: RBC,URINE 11-20 (MOD) /HPF (0-5)
[2019-04-07 00:06] LABS: WBC,URINE TOO MANY TO COUNT /HPF (0-5)
[2019-04-07] MEDS ORDERED: CIPROFLOXACIN 250 MG TAB ONE (02:49)
[2019-04-07] MEDS: CIPROFLOXACIN 250 MG TAB PO SCH (02:50)
[2019-04-07 04:34] VITALS: BP 165/75
== END 2019-04-07 04:34 ==
LOC: MED 19:36
DX: N39.0 Urinary tract infection, site not specified (principal); M06.9 Rheumatoid arthritis, unspecified; I13.11 Hypertensive heart and chronic kidney disease without heart failure, with stage 5 chronic kidney disease, or end stage renal disease; E11.22 Type 2 diabetes mellitus with diabetic chronic kidney disease; N18.6 End stage renal disease; Z99.2 Dependence on renal dialysis; Z79.899 Other long term (current) drug therapy; Z88.0 Allergy status to penicillin; Z91.013 Allergy to seafood; Z88.8 Allergy status to other drugs, medicaments and biological substances
CPT/HCPCS: 36415; 71045; 72170; 80053; 81001; 82150; 83690; 84484; 85025; 87086; 87186; 93005; 99284; Q0092

== ENCOUNTER 2019-07-09 18:34 | Inpatient (IN) | payer OTHER, MEDICAID ==
[~2019-07-09] VITALS: Ht 132.1 cm; Wt 73.0 kg
[2019-07-09 18:41] VITALS: BP 191/88
--- NOTE | 2019-07-09 18:46 | NUR ---
78 Y/O F HEENAA FROM [facility] SNF C/C GENERALIZED WEAKNESS. PT A/OX4. PER PT WEAKNESS AND BODYACHES 10/10 CONTINOUS PAIN SINCE THIS MORNING. PT WITH RIGHT UPPER CHEST DIALYSIS CATH, PER PT SHE GETS DIALYSIS [place] TWICE A WEEK: SUNDAY/SUNDAY. ALLERGIES,HX,RX ---- SEE CHART / PACKET FROM FACILITY
--- NOTE | 2019-07-09 19:08 | NUR ---
Dr. Bernard examining patient.
[2019-07-09 20:01] LABS: BASOPHILS % (AUTO) 0.4 % (0.0-2.0); EOSINOPHILS # (AUTO) 0.2 K/uL (0-0.4); EOSINOPHILS % (AUTO) 3.1 % (0.0-4.0); HEMATOCRIT 40.1 % (36-48); HEMOGLOBIN 12.7 g/dL (12.0-16.0); LYMPHOCYTES # (AUTO) 1.6 K/uL (2.5-16.5); LYMPHOCYTES % (AUTO) 20.6 % (20.5-51.1); MEAN CORPUSCULAR HEMOGLOBIN 30 pg (27-31); MEAN CORPUSCULAR HGB CONC 32 g/dL (33-37); MEAN CORPUSCULAR VOLUME 95.4 fL (80-94); MONOCYTES # (AUTO) 0.5 K/uL (0.8-1.0); MONOCYTES % (AUTO) 6.6 % (1.7-9.3); NEUTROPHILS # (AUTO) 5.3 K/uL (1.8-7.7); NEUTROPHILS % (AUTO) 69.3 % (42.2-75.2); PLATELET COUNT (AUTO) 262 K/uL (140-450); WHITE BLOOD COUNT (AUTO) 7.6 K/uL (4.8-10.8)
--- NOTE | 2019-07-09 20:05 | NUR ---
CT AT BEDSIDE
[2019-07-09 20:15] LABS: ALBUMIN 2.8 g/dL (3.4-5.0); ANION GAP 12.2 (8-16); ASPARTATE AMINOTRANSFERASE 14 U/L (15-37); CARBON DIOXIDE 27.6 mmol/L (21-32); CHLORIDE 104 mmol/L (98-107); GLUCOSE 120 mg/dL (74-106); POTASSIUM 4.8 mmol/L (3.5-5.1); SODIUM SERUM 139 mmol/L (136-145); TOTAL BILIRUBIN 0.3 mg/dL (0.0-1.0); UREA NITROGEN, BLOOD 32 mg/dL (7-18)
[2019-07-09 20:23] LABS: CREATININE 4.4 mg/dL (0.6-1.3)
--- NOTE | 2019-07-09 20:25 | NUR ---
CRITICAL LABS BUN 32 CREATINE 4.4 ERMD AWARE
--- NOTE | 2019-07-09 20:43 | NUR ---
PT LAYING IN BED SLEEPING. EASILY AROUSEABLE TO NAME. ADVISED PT THAT WE STILL NEED URINE, PT STATED SHE DOES NOT HAVE TO GO YET. ONE RAIL UP FOR SAFETY.
--- NOTE | 2019-07-09 21:26 | NUR ---
PT IS RESTING IN BED. AROUSEABLE TO NAME. VSS. SON IS AT BEDSIDE.
--- NOTE | 2019-07-09 22:16 | NUR ---
urine collected VIA BEDPAD. HEALED WOUNDS ON BUTTOCKS AND SACRAL AREA. PICTURES TAKEN AND DIAPER CHANGED.
[2019-07-09] MEDS ORDERED: NACL 0.9% 1,000 ML IV SCH (22:37)
[2019-07-09] MEDS ORDERED: DOCUSATE SODIUM 100 MG GELCAP PO PRN (22:40)
[2019-07-09] MEDS ORDERED: MORPHINE SULFATE 2 MG/ML SYR IVP PRN (22:40)
[2019-07-09] MEDS ORDERED: ONDANSETRON 4 MG/2 ML VIAL IM/IVP PRN (22:40)
[2019-07-09] MEDS ORDERED: ACETAMINOPHEN 325 MG TAB PO PRN (22:40)
[2019-07-09 22:56] LABS: APPEARANCE,URINE CLOUDY (CLEAR); COLOR,URINE YELLOW (YELLOW)
[2019-07-09 22:59] LABS: BILIRUBIN,URINE NEGATIVE (NEGATIVE); BLOOD, URINE TRACE (NEGATIVE); LEUKOCYTE ESTERASE ,URINE 2+ (NEGATIVE); NITRITE, URINE NEGATIVE (NEGATIVE); UGLUCOSE NEGATIVE (NEGATIVE)
[2019-07-09 23:00] LABS: WBC,URINE TOO MANY TO COUNT /HPF (0-5)
[2019-07-09] MEDS ORDERED: ALBUTEROL SULFATE/IPRATROPIU 3 ML SOL IH PRN (23:00)
[2019-07-09] MEDS ORDERED: CLON0.2T16 PO (23:07)
[2019-07-09] MEDS ORDERED: ATOR80TA27 PO (23:07)
[2019-07-09] MEDS ORDERED: ASPI-1205 PO (23:07)
[2019-07-09] MEDS ORDERED: PHO667 PO (23:07)
[2019-07-09 23:08] LABS: PROTHROMBIN TIME 9.7 secs (10.8-13.4)
[2019-07-09 23:09] LABS: FREE T4 (FREE THYROXINE) 0.96 ng/dL (0.76-1.46); PHOSPHORUS 3.9 mg/dL (2.5-4.9); THYROID STIMULATING HORMONE 2.62 uIU/mL (0.34-3.74)
[2019-07-09 23:15] VITALS: BP 187/84
--- NOTE | 2019-07-09 23:15 | NUR ---
ADMITTED 78 YR OLD BLACK FEMALE FROM ER VIA [facility].A/A/OX4.PER PT "C/O H/A,NAUSEA,CAN'T BREATH SINCE THIS MORNING. DENIES ANY DISCOMFORT @ THIS TIME.DENIES CP.DENIES SOB,O2 SAT ON 2L NC 100%. NOTED RIGHT UPPER CHEST PERMACATH DRESSING D/I. BBKA. NOTED WITH REDDENED HEALED PRESSURE SCAR ON HER COCCYX,RIGHT & LEFT BUTTOCK .PICTURES TAKEN IN ER.ORIENTED TO HER ENVIRONMENT,BED CONTROL& CALL LIGHT;WITHIN REACH.FAMILY @ THE BS.
--- NOTE | 2019-07-09 23:20 | NUR ---
DR. CAMPBELL/DR VILLAGOMEZ MADE AWARE OF BNP 3330,TROPONIN 0.084.
--- NOTE | 2019-07-09 23:34 | NUR ---
Patient will be admitted to care of DR RODRIGUEZ. Admited to [facility]. Will go to room 118. Belongings list completed. Report to LUZ MARINA LEWIS.
[2019-07-09] MEDS ORDERED: DEXTROSE 50% 50 ML SYR IVP PRN (23:45)
[2019-07-09] MEDS ORDERED: hydrALAZINE 20 MG/ML VIAL IVP SCH (23:45)
[2019-07-09] MEDS ORDERED: APAP/BUTAL/CAFF 325/50/40 MG 1 TAB PO SCH (23:50)
[2019-07-09] MEDS ORDERED: HYDROcodone/APAP 5/325 MG 1 TAB TAB PO PRN (23:50)
[2019-07-09] MEDS ORDERED: APAP/BUTAL/CAFF 325/50/40 MG 1 TAB PO PRN (23:50)
[2019-07-10] MEDS ORDERED: POLYETHYLENE GLYCOL 17 GM/PKT PO PRN
[2019-07-10] MEDS ORDERED: cloNIDine 0.1 MG TAB PO PRN
[2019-07-10] MEDS ORDERED: hePARIN / DEXT 5% PREMIX 250 ML IV SCH ×2 (01:05→02:00)
[2019-07-10] MEDS ORDERED: HEPARIN PER PHARMACY MC PRN (01:05)
[2019-07-10] MEDS: PANTOPRAZOLE 40 MG INJ VIAL IVP SCH ×2 (01:20→10:05)
--- NOTE | 2019-07-10 01:22 | NUR ---
CLONIDINE0.1MG ADM BP 175/93,ND 86.
--- NOTE | 2019-07-10 01:40 | NUR ---
PATIENT UNABLE TO GIVE SPUTUM SAMPLE AT THIS TIME. CUP AT BEDSIDE. PATIENT UNABLE TO DO INCENTIVE SPIROMETER. PATIENT SEEMS CONFUSED. HHNTX GIVEN.
--- NOTE | 2019-07-10 02:55 | NUR ---
HEPARIN DRIP STARTED @600 UNITS/HR @ 6 ML/HR INFUSING WELL ON HER RAC.
--- NOTE | 2019-07-10 03:43 | NUR ---
HYDRALAZINE 5 MG IV ADM.BP 186/75MM HG.
[2019-07-10 04:00] VITALS: BP 186/75
--- NOTE | 2019-07-10 04:43 | NUR ---
BP 160/70 , POST HYDRALAZINE IV.TELE SHOWED SR WITH BBB.
[2019-07-10 05:55] VITALS: BP 160/70
[2019-07-10] MEDS: hydrALAZINE 25 MG TAB PO SCH ×3 (05:55→21:39)
[2019-07-10] MEDS: BLOOD GLUCOSE MONITORING 1 DEV DEV FS SCH ×4 (06:44→21:53)
--- NOTE | 2019-07-10 06:45 | NUR ---
RESTING COMFORTABLY IN NO ACUTE DISTRESS.LATEST BP156/65.TELE SHOWED SR WITH BBB. SAFETY MAINTAINED.NO S/S OF HYPO/HYPERGLYCEMIA NOTED.
--- NOTE | 2019-07-10 07:15 | NUR ---
RECEIVED REPORT FROM MARKETING ADMIN NURSE ELIN FOR CONTINUITY OF CARE. PT IN STABLE CONDITION. RESPIRATIONS EVEN AND UNLABORED. IV INTACT AND PATENT. SAFETY MEASURES IN PLACE. BED IN LOW POSITION. BED ALARM ON. CALL LIGHT AT BEDSIDE. WILL CONTINUE TO MONITOR.
[2019-07-10 08:00] VITALS: BP 171/67
--- NOTE | 2019-07-10 08:23 | NUR ---
PATIENT HAS BEEN SCREENED AND CATEGORIZED MODERATE NUTRITION RISK. PATIENT WILL BE SEEN WITHIN 3-5 DAYS OF ADMISSION. 07/12/19 07/14/[address]
[2019-07-10 08:33] LABS: BASOPHILS % (AUTO) 0.7 % (0.0-2.0); EOSINOPHILS # (AUTO) 0.1 K/uL (0-0.4); HEMATOCRIT 37.2 % (36-48); HEMOGLOBIN 11.8 g/dL (12.0-16.0); LYMPHOCYTES # (AUTO) 1.3 K/uL (2.5-16.5); LYMPHOCYTES % (AUTO) 23.3 % (20.5-51.1); MEAN CORPUSCULAR HEMOGLOBIN 30 pg (27-31); MEAN CORPUSCULAR HGB CONC 32 g/dL (33-37); MEAN CORPUSCULAR VOLUME 95.2 fL (80-94); MONOCYTES # (AUTO) 0.6 K/uL (0.8-1.0); MONOCYTES % (AUTO) 10.1 % (1.7-9.3); NEUTROPHILS # (AUTO) 3.6 K/uL (1.8-7.7); NEUTROPHILS % (AUTO) 63.9 % (42.2-75.2); PLATELET COUNT (AUTO) 224 K/uL (140-450); RED BLOOD CELL COUNT(AUTO) 3.91 MIL/uL (4.20-5.40); RED CELL DISTRIBUTION WIDTH 15.8 % (11.6-13.7); WHITE BLOOD COUNT (AUTO) 5.6 K/uL (4.8-10.8)
[2019-07-10 08:41] LABS: ANION GAP 12.2 (8-16); CARBON DIOXIDE 26.5 mmol/L (21-32); CHLORIDE 106 mmol/L (98-107); GLUCOSE 97 mg/dL (74-106); POTASSIUM 4.7 mmol/L (3.5-5.1); SODIUM SERUM 140 mmol/L (136-145); UREA NITROGEN, BLOOD 35 mg/dL (7-18)
[2019-07-10 08:43] LABS: CREATININE 4.7 mg/dL (0.6-1.3)
[2019-07-10] MEDS ORDERED: VIT-B COMP/VIT-C/FOLIC ACID 1 TAB PO SCH (09:00)
[2019-07-10] MEDS ORDERED: LISINOPRIL 20 MG TAB PO SCH (09:00)
[2019-07-10] MEDS ORDERED: METOPROLOL 25 MG TAB PO SCH (09:00)
[2019-07-10] MEDS ORDERED: ASPIRIN 325 MG TAB PO SCH (09:00)
[2019-07-10] MEDS ORDERED: HYDROmorphone 1 MG/ML AMP IVP PRN (09:20)
--- NOTE | 2019-07-10 09:44 | NUR ---
PT TALKING WITH SON AT BEDSIDE. RESPIRATIONS EVEN AND UNLABORED. BED IN LOW POSITION. BED ALARM ON. CALL LIGHT AT BEDSIDE. WILL CONTINUE TO MONITOR.
[2019-07-10] MEDS: PREGABALIN 50 MG CAP PO SCH ×2 (10:03→21:39)
[2019-07-10] MEDS: LACTOBACILLUS RHAMNOSUS GG 1 EACH CAP PO SCH (10:03)
[2019-07-10] MEDS: CALCIUM ACETATE 667 MG TAB PO SCH ×3 (10:03→16:50)
[2019-07-10] MEDS: CALCIUM CARBONATE 500 MG TAB PO SCH (10:03)
[2019-07-10] MEDS: cloNIDine 0.1 MG TAB PO SCH ×2 (10:05→12:28)
[2019-07-10] MEDS: PIPERACILLIN/TAZOBACTAM 2.25 GM in DEXTROSE 5% 50 ML IV SCH ×2 (10:23→21:42)
[2019-07-10] MEDS: Z-GUARD PASTE TP SCH (10:27)
--- NOTE | 2019-07-10 10:36 | NUR ---
NOTIFIED MCINTYRE FROM ACUTE DIALYSIS FOR THE HD ORDERED FOR TODAY.
--- NOTE | 2019-07-10 11:05 | NUR ---
HEPARIN DRIP COMPLETE AT THIS TIME. PT IN STABLE CONDITION.
[2019-07-10 12:00] VITALS: BP 172/67
--- NOTE | 2019-07-10 13:33 | NUR ---
PT SLEEPING. DIALYSIS AT BEDSIDE. PT IN STABLE CONDITION. CALL LIGHT AT BEDSIDE. BED IN LOW POSITION. BED ALARM ON.
[2019-07-10] MEDS: INSULIN LISPRO SLIDING SCALE 100 UNITS/ML VIAL SUBQ PRN ×2 (15:17→21:52)
[2019-07-10 16:00] VITALS: BP 170/65
--- NOTE | 2019-07-10 16:46 | NUR ---
X-RAY AT BEDSIDE. PT IN STABLE CONDITION. Addendum: 07/10/19 at 1647 by Cindy Rader RN WRONG PT
[2019-07-10] MEDS: CARVEDILOL 12.5 MG TAB PO SCH (16:50)
--- NOTE | 2019-07-10 16:53 | NUR ---
NUCLEAR MED AT BEDSIDE FOR ECHO AT THIS TIME. PT IN STABLE CONDITION.
--- NOTE | 2019-07-10 19:15 | NUR ---
GAVE REPORT TO AUTO AIR CONDITIONING INSTALLER NURSE MONCHO FOR CONTINUITY OF CARE. PT IN STABLE CONDITION.
--- NOTE | 2019-07-10 19:20 | NUR ---
RECEIVED PT ASLEEP, EASILY AROUSABLE, AAOX4, ABLE TO MAKE NEEDS KNOWN, VITAL SIGNS STABLE, 99% SAT ON O2 AT 2L NC, DENIES ANY PAIN, NO SOB NOTED, IVF INFUSING WELL AT TKO RATE, WITH RT RUFINA CATH HD CATHETER IN PLACE, DRESSING DRY AND INTACT, HX OF BLE BKA, WILL REPOSITION Q2H AND OFFLOAD PRESSURE AREAS, MAINTAINED ON CONTACT PRECAUTION, SAFETY MEASURES IN PLACE, CALL LIGHT WITHIN REACH.
[2019-07-10 20:00] VITALS: BP 133/55
[2019-07-10] MEDS: INSULIN LANTUS 100 UNITS/ML 10 ML VIAL SUBQ SCH (21:00)
[2019-07-10] MEDS: ATORVASTATIN 80 MG TAB PO SCH (21:39)
--- NOTE | 2019-07-10 21:55 | NUR ---
BLOOD SUGAR CHECKED WITH 156 RESULT, TALKED TO DR CAMPBELL, PT HAS DUE 30 UNITS LANTUS, STATED TO HOLD LANTUS AND JUST GIVE HUMALOG SLIDING SCALE, DUE MEDS ADMINISTERED WITH EDUCATION PROVIDED, MEDICATED PRN WITH NORCO FOR BACK PAIN, ALL NEEDS ATTENDED.
[2019-07-11] VITALS: BP 134/56
--- NOTE | 2019-07-11 | NUR ---
PT SLEEPING, EASILY AROUSABLE, VITAL SIGNS STABLE, DENIES ANY PAIN, NO SOB NOTED, CONTINUE TO REPOSITION Q2H AND OFFLOAD PRESSURE AREAS, MONITORED CLOSELY.
[2019-07-11 04:00] VITALS: BP 158/70
--- NOTE | 2019-07-11 04:00 | NUR ---
PT SLEEPING, EASILY AROUSABLE, VITAL SIGNS TAKEN, BP SLIGHTLY ELEVATED, DENIES ANY PAIN, NO SOB NOTED, WILL GIVE DUE BP MEDICATION APRESOLINE, MONITORED CLOSELY.
[2019-07-11] MEDS: hydrALAZINE 25 MG TAB PO SCH ×3 (04:56→20:58)
--- NOTE | 2019-07-11 05:55 | NUR ---
BLOOD SUGAR CHECKED WITH 89 RESULT, DENIES ANY PAIN, IVF INFUSING WELL AT TKO RATE, MONITORED CLOSELY.
[2019-07-11] MEDS: BLOOD GLUCOSE MONITORING 1 DEV DEV FS SCH ×4 (06:32→21:13)
--- NOTE | 2019-07-11 07:20 | NUR ---
PT AWAKE, NO SIGNS OF DISTRESS, REPORT GIVEN TO LUZ MARINA OLIVER FOR CONTINUITY OF CARE.
--- NOTE | 2019-07-11 07:21 | NUR ---
RECEIVED REPORT FROM PRESSURIZATION MECHANIC NURSE MONCHO FOR CONTINUITY OF CARE. PT IN STABLE CONDITION. RESPIRATIONS EVEN AND UNLABORED. IV INTACT AND PATENT. SAFETY MEASURES IN PLACE. BED IN LOW POSITION. BED ALARM ON. CALL LIGHT AT BEDSIDE. WILL CONTINUE TO MONITOR.
[2019-07-11 08:00] VITALS: BP 184/78
[2019-07-11 08:45] LABS: BASOPHILS # (AUTO) 0.1 K/uL (0.00-0.22); BASOPHILS % (AUTO) 1.1 % (0.0-2.0); EOSINOPHILS # (AUTO) 0.3 K/uL (0-0.4); EOSINOPHILS % (AUTO) 5.9 % (0.0-4.0); HEMOGLOBIN 11.6 g/dL (12.0-16.0); LYMPHOCYTES # (AUTO) 1.2 K/uL (2.5-16.5); MEAN CORPUSCULAR HEMOGLOBIN 30 pg (27-31); MEAN CORPUSCULAR HGB CONC 31 g/dL (33-37); MEAN CORPUSCULAR VOLUME 96.4 fL (80-94); MONOCYTES # (AUTO) 0.5 K/uL (0.8-1.0); MONOCYTES % (AUTO) 8.1 % (1.7-9.3); NEUTROPHILS # (AUTO) 3.5 K/uL (1.8-7.7); NEUTROPHILS % (AUTO) 62.9 % (42.2-75.2); PLATELET COUNT (AUTO) 237 K/uL (140-450); RED BLOOD CELL COUNT(AUTO) 3.84 MIL/uL (4.20-5.40); RED CELL DISTRIBUTION WIDTH 15.8 % (11.6-13.7); WHITE BLOOD COUNT (AUTO) 5.6 K/uL (4.8-10.8)
[2019-07-11 08:58] LABS: ANION GAP 12.7 (8-16); CARBON DIOXIDE 27.3 mmol/L (21-32); CHLORIDE 103 mmol/L (98-107); CREATININE 3.9 mg/dL (0.6-1.3); GLUCOSE 82 mg/dL (74-106); SODIUM SERUM 139 mmol/L (136-145); UREA NITROGEN, BLOOD 25 mg/dL (7-18)
[2019-07-11] MEDS: PIPERACILLIN/TAZOBACTAM 2.25 GM in DEXTROSE 5% 50 ML IV SCH ×2 (09:26→20:59)
[2019-07-11] MEDS: CALCIUM CARBONATE 500 MG TAB PO SCH (09:26)
[2019-07-11] MEDS: PANTOPRAZOLE 40 MG INJ VIAL IVP SCH (09:26)
[2019-07-11] MEDS: PREGABALIN 50 MG CAP PO SCH ×2 (09:26→20:58)
[2019-07-11] MEDS: VIT-B COMP/VIT-C/FOLIC ACID 1 TAB PO SCH (09:26)
--- NOTE | 2019-07-11 09:26 | NUR ---
GAVE ORDERED DUE MEDICATIONS AT THIS TIME. PT TOLERATED WELL. BED IN LOW POSITION. BED ALARM ON. CALL LIGHT AT BEDSIDE. WILL CONTINUE TO MONITOR.
[2019-07-11] MEDS: ASPIRIN 81 MG TAB.CHEW PO SCH (09:27)
[2019-07-11] MEDS: LACTOBACILLUS RHAMNOSUS GG 1 EACH CAP PO SCH (09:27)
[2019-07-11] MEDS: LISINOPRIL 20 MG TAB PO SCH (09:27)
[2019-07-11] MEDS ORDERED: CRUSHER, PILL MC ONE (09:30)
[2019-07-11] MEDS: CARVEDILOL 12.5 MG TAB PO SCH ×2 (09:39→17:56)
[2019-07-11] MEDS: CALCIUM ACETATE 667 MG TAB PO SCH ×3 (09:40→17:56)
[2019-07-11] MEDS: Z-GUARD PASTE TP SCH ×2 (09:40→16:59)
--- NOTE | 2019-07-11 10:17 | NUR ---
Recreation Officer Note: Basic Screen: Yes High Risk DC Screen [place]: KIMMIE ARAGON Home Relationship: SON Pre-Admission Living Arrangements: SNF Prior ADL Independent Current Home Health Name/Tel: N/A Current DME/02 Name/Tel: [facility] Current Hospice Name/Tel: N/A Current Dialysis Name/Tel: [facility] ([facility]) Healthcare Decision Maker: Next of Kin Advance Directive No Physician Orders for Life Sustaining Treatment Form No Patient/Family Have Educational Needs No Information Taught: Advance Directive Person Taught: Patient Teaching Tools: Verbal Factors Affecting Learning: None Participation Level: Refused Evaluation: Verbalizes Understanding Needs Additional Education: No Discipline: Case Mgt/Social Svcs Tentative Discharge Plan/Destination: SNF/ECF Will require assistance post discharge: No Referred to Commercial Finance Manager: No Tentative Discharge Plan Summary: Patient is a 78-year-old patient admitted for shortness of breath. Patient has PMHX of CAD, HTN, CHF, Diabetes, Mellitis, HLD, ESRD on demodialysis ([facility]), peripheral vascular disease, arthritis, and sacral pressure wound. Patient was admitted from [facility]. SW contacted Lady from [facility] [phone]. Per Lady, patient is chcf and is currently on a bed hold. Patient needs extensive assistance with ADLS and is alert and oriented at baseline. Patient's healthcare decision maker is Kimmie Aragon, her son. Tentative discharge plan is for patient to return to [facility]. No further needs identified. Signature: GOLD Arita Date: Jul 11, 2019 Time: 10:16
[2019-07-11 10:57] VITALS: BP 144/72
--- NOTE | 2019-07-11 12:01 | NUR ---
PT SLEEP AT THIS TIME. RESPIRATIONS EVEN AND UNLABORED. BED IN LOW POSITION. BED ALARM ON. CALL LIGHT AT BEDSIDE. WILL CONTINUE TO MONITOR.
--- NOTE | 2019-07-11 12:16 | NUR ---
DISCHARGE PLANNING: THIS IS A 77 Y/O FEMALE PATIENT FROM [facility], WHO WAS BROUGHT IN DUE TO NAUSEA, HEADACHE, FATIGUE AND SOB. PAST MEDICAL HISTORY INCLUDE CAD WITH AL X2, S/P CABG, HTN, CHF, DM, ESRD ON HD (M/F), PVD, B/L BKA. CURRENT LABS INCLUDE WBC 5.6, H/H 11.6/37, NA/K 139/4.0, BUN/CREA 25/3.9. MRSA NARES, WOUND, BLOOD AND URINE C/S PENDING. CARDIO, PULMO AND NEPHRO CONSULTS IN PLACE. ON ZOSYN. DC PLANNING BACK TO [facility] ONCE STABLE. Addendum: 07/12/19 at 1203 by Anna Briseno DC PLANNING: SEEN BY PULMO DR MILKA MARCELINO WITH O2 CXRAY SHOWED PULMONARY EDEMA VERSUS PNEUMONIA ,NEPHRO CONTINUE HEMODIALYSIS, CREATIVE WRITING ENGLISH PROFESSOR DR FARRUKH NATION HEPARIN MAINLY NEED BP CONTROL .DC PLAN TO GO BACK TO [facility] ON SUNDAY CM TO FOLLOW. Addendum: 07/14/19 at 1736 by Anna Briseno CM ME PLANNING CALLED [facility] [phone] SPOKE WITH BLANCA NEWBY PATIENT AND PT CAN GO TO ROOM #[id number] [facility] AT [phone] WITH FERNANDO TRIP NUMBER # [id number] [facility] WILL CALL BACK TO THE UNIT WITH THE ETA KARENIED HARPAL RAZA
--- NOTE | 2019-07-11 14:45 | NUR ---
ASSISTED WITH WOUND CARE WITH DEBORAH WOUND CARE NURSE. PT TOLERATE WELL. WILL CONTINUE TO MONITOR.
--- NOTE | 2019-07-11 15:11 | NUR ---
WOUND CARE EVALUATION NOTE: REASON FOR EVALUATION: SACRAL, RIGHT AND LEFT ISCHIUM WOUNDS SKIN ASSESSMENT DONE WITH THIS 78 Y/O FEMALE PT ADMITTED FROM SNF TO [facility] WITH INITIAL DX SOB, FATIGUE. PAST MEDICAL HX OF CAD WITH GA X2 S/P CABG , HTN CHF,DM, B/L BKA, ESRD ON HD (M/F)AND PT. ADMITTED WITH MULTIPLE PRESSURE ULCERS UN-KNOW STAGING.PREVIOUS ADMISSION PRESSURE ULCER WERE AT REMODELING STAGE WITH THIN SCARS. ALL ABOVE INFORMATION OBTAINED FROM ADMISSION H&P AND PREVIOUS RECORD. PT IS AWAKE. SKIN IS WARM AND DRY. INCONTINENT OF BOWEL AND BLADDER. PLAN OF CARE DISCUSSED WITH PRIMARY RN AND PT. PT. VERBALIZING UNDERSTANDING. INTEGUMENTARY: -BILATERAL BKA STUMPS HEALED SCARS DRY AND CLEAN. -COCCYX PRESSURE ULCER PARTIAL THICKNESS SKIN LOSS FROM PREVIOUS HEALING SCAR, 0.5X0.5X0.1CM 100% GRANULATING TISSUE TO WOUND BED MOIST, CLEAN NO ODOR, PERIWOUND PALE PINK, HEALING SCAR, FRAGILE TO TOUCH - RIGHT ISCHIUM PRESSURE ULCER PARTIAL THICKNESS SKIN LOSS FROM PREVIOUS HEALING SCAR, 0.8X0.5X0.1CM 100% GRANULATING TISSUE TO WOUND BED MOIST, CLEAN NO ODOR, PERIWOUND PALE PINK, HEALING SCAR, FRAGILE TO TOUCH -LEFT ISCHIUM PRESSURE ULCER PARTIAL THICKNESS SKIN LOSS FROM PREVIOUS HEALING SCAR, 0.5X0.5X0.1CM 100% GRANULATING TISSUE TO WOUND BED MOIST, CLEAN NO ODOR, PERIWOUND PALE PINK, HEALING SCAR, FRAGILE TO TOUCH RECOMMENDATIONS: -CLEANSE COCCYX, RIGHT AND LEFT ISCHIALS WITH NS, PAT DRY, APPLY THIN LAYER OF Z GUARD AND FOAM DRESSING QD AND PRN IF SOILING -PLEASE KEEP SKIN DRY AND CLEAN AT ALL TIMES -OFFLOAD BILATERAL THIGHS BY PLACING PILLOWS UNDER CALVES UNLESS OTHERWISE CONTRAINDICATED -PRESSURE REDISTRIBUTION SURFACE THERAPY BY POSITION WEDGE/PILLOWS -TURN AND REPOSITION Q2H, OFFLOAD SACRALCOCCYX /ISCHIUM BY TURNING RIGHT AND LEFT Q2 HOURS -CONTINUE TO FOLLOW RD RECOMMENDATIONS ALL ABOVE RECOMMENDATIONS DISCUSSED WITH PRIMARY RN PLEASE CONTACT WOUND CARE NURSE FOR ANY QUESTION AND CHANGE OF WOUND CONDITION.
[2019-07-11 16:00] VITALS: BP 186/77
--- NOTE | 2019-07-11 16:30 | NUR ---
PT TALKING WITH FAMILY ON THE PHONE. RESPIRATIONS EVEN AND UNLABORED. BED IN LOW POSITION. BED ALARM ON. CALL LIGHT AT BEDSIDE. WILL CONTINUE TO MONITOR.
--- NOTE | 2019-07-11 19:10 | NUR ---
RECEIVED REPORT FROM DAY SHIFT NURSE. PATIENT IS AWAKE AND ALERT. RESPIRATIONS EVEN AND UNLABORED TO RA. IV ON LEFT AND RIGHT ARM PATENT AND INTACT. SALINE LOCKED. RUFINA CATH IN PLACE. NO OTHER SIGNS OF DISTRESS NOTED. DENIES PAIN AT THIS TIME. PLAN OF CARE DISCUSSED. SAFETY MEASURES IN PLACE. BED IN LOWEST POSITION, SIDE RAILS UP, CALL LIGHT WITHIN REACH. WILL CONTINUE TO MONITOR.
--- NOTE | 2019-07-11 19:15 | NUR ---
GAVE REPORT TO ACUPRESSURE THERAPIST NURSE AT THIS TIME. PT IN STABLE CONDITION.
[2019-07-11 20:00] VITALS: BP 145/58
--- NOTE | 2019-07-11 20:05 | NUR ---
INITIAL ASSESSMENT DONE. VITALS WERE TAKEN. UNABLE TO GET URINE SAMPLE FORM PATIENT. PER PATIENT SHE DOESN'T PEE THAT MUCH ANYMORE DUE TO HER END STAGE RENAL DISEASE. NOTIFIED MD. WILL CONTINUE TO MONITOR
[2019-07-11] MEDS: ATORVASTATIN 80 MG TAB PO SCH (20:58)
--- NOTE | 2019-07-11 20:58 | NUR ---
PATIENT AWAKE AND ALERT. DUE MEDICATIONS GIVEN ORDERED. PATIENT TOLERATED MEDS. NO COMPLAINTS OF PAIN AT THIS TIME. SAFETY MEASURES IN PLACE. BED IN LOW POSITION, SIDE RAILS RAISED, CALL LIGHT WITHIN REACH. WILL CONTINUE TO MONITOR.
[2019-07-11] MEDS: INSULIN LANTUS 100 UNITS/ML 10 ML VIAL SUBQ SCH (21:06)
[2019-07-11] MEDS: INSULIN LISPRO SLIDING SCALE 100 UNITS/ML VIAL SUBQ PRN (21:08)
--- NOTE | 2019-07-11 23:00 | NUR ---
CHECKED PATIENT. PATIENT SLEEPING. BREATHING EVEN AND UNLABORED. NO SIGNS OF DISTRESS. SAFETY MEASURES IN PLACE. WILL CONTINUE TO MONITOR.
[2019-07-12] VITALS: BP 129/54
--- NOTE | 2019-07-12 02:21 | NUR ---
ROUNDS MADE. PATIENT LYING IN BED SLEEPING. NO SIGNS OF DISTRESS NOTED. SAFETY MEASURES IN PLACE. BED IN LOWEST POSITION, SIDE RAILS RAISED, CALL LIGHT WITHIN REACH. KEPT COMFORTABLE. WILL CONTINUE TO MONITOR.
[2019-07-12 04:00] VITALS: BP 130/57
--- NOTE | 2019-07-12 04:10 | NUR ---
ROUNDS DONE. PATIENT IS SLEEPING. VITAL SIGNS STABLE. DENIES ANY PAIN AT THIS TIME. SAFETY MEASURES IN PLACE. NO COMPLAINTS MADE. KEPT COMFORTABLE. WILL CONTINUE TO MONITOR.
[2019-07-12] MEDS: hydrALAZINE 25 MG TAB PO SCH ×3 (04:57→21:17)
[2019-07-12] MEDS: BLOOD GLUCOSE MONITORING 1 DEV DEV FS SCH ×4 (06:32→21:15)
[2019-07-12] MEDS ORDERED: LORazepam 2 MG/ML VIAL IM/IVP ONE (06:35)
[2019-07-12 06:42] LABS: BASOPHILS # (AUTO) 0.1 K/uL (0.00-0.22); EOSINOPHILS # (AUTO) 0.4 K/uL (0-0.4); EOSINOPHILS % (AUTO) 6.6 % (0.0-4.0); HEMATOCRIT 38.5 % (36-48); HEMOGLOBIN 12.1 g/dL (12.0-16.0); LYMPHOCYTES # (AUTO) 1.6 K/uL (2.5-16.5); LYMPHOCYTES % (AUTO) 26.6 % (20.5-51.1); MEAN CORPUSCULAR HEMOGLOBIN 30 pg (27-31); MEAN CORPUSCULAR HGB CONC 31 g/dL (33-37); MEAN CORPUSCULAR VOLUME 96.1 fL (80-94); MONOCYTES # (AUTO) 0.7 K/uL (0.8-1.0); MONOCYTES % (AUTO) 11.7 % (1.7-9.3); NEUTROPHILS # (AUTO) 3.3 K/uL (1.8-7.7); NEUTROPHILS % (AUTO) 54.1 % (42.2-75.2); PLATELET COUNT (AUTO) 218 K/uL (140-450); WHITE BLOOD COUNT (AUTO) 6.2 K/uL (4.8-10.8)
--- NOTE | 2019-07-12 06:45 | NUR ---
PATIENT REFUSED STRAIGHT CATHETERIZATION RIGHT NOW, INSTEAD VERBALIZED THAT SHE WILL LET US KNOW WHEN SHE NEEDS TO URINATE. REPORTED TO MD. ACKNOWLEDGED. ENDORSED TO DAY SHIFT NURSE. WILL CONTINUE TO MONITOR.
[2019-07-12 06:53] LABS: ANION GAP 13.4 (8-16); CARBON DIOXIDE 26.1 mmol/L (21-32); CHLORIDE 104 mmol/L (98-107); GLUCOSE 65 mg/dL (74-106); POTASSIUM 4.5 mmol/L (3.5-5.1); SODIUM SERUM 139 mmol/L (136-145); UREA NITROGEN, BLOOD 38 mg/dL (7-18)
[2019-07-12 06:59] LABS: MAGNESIUM 1.9 mg/dL (1.8-2.4); PHOSPHORUS 3.9 mg/dL (2.5-4.9)
--- NOTE | 2019-07-12 07:03 | NUR ---
CRITICAL LAB: CREATININE 4.4. WILL INFORM RESIDENT DOCTOR
[2019-07-12 07:04] LABS: CREATININE 4.4 mg/dL (0.6-1.3)
--- NOTE | 2019-07-12 07:15 | NUR ---
ENDORSED TO DAY SHIFT NURSE. PATIENT NOT IN DISTRESS. NO COMPLAINTS OF PAIN MADE. SAFETY MEASURES IN PLACE.
--- NOTE | 2019-07-12 07:18 | NUR ---
RECEIVED PATIENT FROM ACTIVITIES VOLUNTEER NURSE FOR CONTINUITY OF CARE. PATIENT IS SLEEPING AT THIS TIME. NO SIGNS OF DISTRESS NOTED. RESPIRATIONS EVEN AND UNLABORED, ROOM AIR.. LUNG SOUNDS CLEAR. VISIBLE CHEST RISE NOTED. ON TELE MONITORING. SKIN WARM, DRY. BILATERAL SACRAL WOUND THAT ARE CLOSED AND HEALING. IV IN THE RIGHT AV GAUGE 22, SALINE LOCK. IV IN THE LEFT AC GAUGE 20, SALINE LOCK. IV FLUSHED WELL. PATIENT IS ANURIC. PATIENT IS ON RENAL DIET.. STANDARD ISOLATION. CONTACT AND FALL PRECAUTIONS IN PLACE. BEDBOUND. BED IN LOW POSITION. CALL LIGHT IS WITHIN REACH. WILL CONTINUE TO MONITOR.
[2019-07-12 08:00] VITALS: BP 153/79
[2019-07-12] MEDS: CARVEDILOL 12.5 MG TAB PO SCH ×2 (08:00→17:56)
[2019-07-12] MEDS: VIT-B COMP/VIT-C/FOLIC ACID 1 TAB PO SCH (08:27)
[2019-07-12] MEDS: PREGABALIN 50 MG CAP PO SCH ×2 (08:28→21:18)
[2019-07-12] MEDS: CALCIUM CARBONATE 500 MG TAB PO SCH (08:28)
[2019-07-12] MEDS: CALCIUM ACETATE 667 MG TAB PO SCH ×3 (08:28→17:56)
[2019-07-12] MEDS: PANTOPRAZOLE 40 MG INJ VIAL IVP SCH (08:29)
[2019-07-12] MEDS: LACTOBACILLUS RHAMNOSUS GG 1 EACH CAP PO SCH (08:29)
[2019-07-12] MEDS: PIPERACILLIN/TAZOBACTAM 2.25 GM in DEXTROSE 5% 50 ML IV SCH ×2 (08:29→21:32)
[2019-07-12] MEDS: ASPIRIN 81 MG TAB.CHEW PO SCH (08:40)
--- NOTE | 2019-07-12 08:48 | NUR ---
GIVEN MORNING MEDICATIONS PO. HELD BP MEDS BECAUSE PATIENT IS SCHEDULED FOR DIALYSIS. HEPARIN SUBQ IN THE LEFT UPPER ARM. PLATELET IS 218. EXPLAINED MEDICATIONS AND SIDE EFFECTS. PATIENT VERBALIZED UNDERSTANDING. BED IN LOW POSITION. CALL LIGHT IS WITHIN REACH. WILL CONTINUE TO MONITOR.
[2019-07-12] MEDS: LISINOPRIL 20 MG TAB PO SCH (09:00)
--- NOTE | 2019-07-12 09:00 | NUR ---
OBTAINED URINE SAMPLE FOR UA.
--- NOTE | 2019-07-12 10:31 | NUR ---
PATIENT IS AWAKE, WATCHING TV. DENIES PAIN. NO SOB. BED IN LOW POSITION. CALL LIGHT IS WITHIN REACH. WILL CONTINUE TO MONITOR
--- NOTE | 2019-07-12 11:17 | NUR ---
BLOOD GLUCOSE CHECK: 131. NO INSULIN COVERAGE
[2019-07-12 12:00] VITALS: BP 112/61
--- NOTE | 2019-07-12 12:18 | NUR ---
GIVEN PHOSLO PO. CUT IT IN HALF PER PATIENT'S REQUEST. EXPLAINED MEDICATION. PATIENT VERBALIZED UNDERSTANDING. BED IN LOW POSITION. CALL LIGHT IS WITHIN REACH. WILL CONTINUE TO MONITOR
[2019-07-12] MEDS: Z-GUARD PASTE TP SCH (13:20)
--- NOTE | 2019-07-12 13:20 | NUR ---
APPLIED Z-GUARD AND CHANGED WOUND DRESSING
--- NOTE | 2019-07-12 13:25 | NUR ---
TAKEN PICTURES OF WOUNDS.
[2019-07-12 16:00] VITALS: BP 100/55
--- NOTE | 2019-07-12 16:24 | NUR ---
BLOOD GLUCOSE CHECK: 182. WILL GIVE INSULIN COVERAGE
--- NOTE | 2019-07-12 16:27 | NUR ---
HELD HYDRALAZINE BECAUSE PATIENT HAS DIALYSIS
--- NOTE | 2019-07-12 16:59 | NUR ---
DIALYSIS IS STILL ONGOING. PATIENT IS IN STABLE CONDITION.
--- NOTE | 2019-07-12 17:39 | NUR ---
DIALYSIS IS COMPLETED. OUTPUT OF 3 LITERS
--- NOTE | 2019-07-12 17:56 | NUR ---
GIVEN PHOSLO AND COREG PO. BP IS 110/68, HR 79. EXPLAINED MEDICATIONS. WILL CONTINUE TO MONITOR
[2019-07-12] MEDS: INSULIN LISPRO SLIDING SCALE 100 UNITS/ML VIAL SUBQ PRN ×2 (18:25→21:18)
--- NOTE | 2019-07-12 18:25 | NUR ---
GIVEN 2 UNITS OF INSULIN SUBQ IN THE LEFT UPPER ARM.
--- NOTE | 2019-07-12 18:54 | NUR ---
10,000 UNITS HEPARIN WERE GIVEN TO DIALYSIS NURSE, MIGUELINA, FOR DIALYSIS
--- NOTE | 2019-07-12 19:08 | NUR ---
ENDORSED PATIENT TO THE EMBEDDED NURSE NURSE FOR CONTINUITY OF CARE. PATIENT IS IN STABLE CONDITION.
--- NOTE | 2019-07-12 19:09 | NUR ---
RECEIVED BEDSIDE SHIFT REPORT FROM [facility] NURSE CISNEROS. PATIENT AWAKE IN BED. ASSESSED IV SITE IV FLUSHED AND PATENT. RIGHT UPPER CHEST DIALYSIS CATH IN PLACE DRESSING INTACT. RESPIRATIONS EVEN AND UNLABORED ON ROOM AIR. NO SIGNS OF DISTRESS NOTED. SAFETY MEASURES IN PLACE BED IN LOW POSITION AND CALL LIGHT WITHIN REACH.
[2019-07-12 20:00] VITALS: BP 154/61
[2019-07-12] MEDS: ATORVASTATIN 80 MG TAB PO SCH (21:18)
--- NOTE | 2019-07-12 21:18 | NUR ---
ADMINISTERED 2100 MEDICATIONS. PATIENT TOLERATED WELL. NO SIGNS OF DISTRESS NOTED AND RESPIRATIONS EVEN AND UNLABORED. POC GLUCOSE CHECK FOR PT. BS 206. ADMINISTERED INSULIN PER MD SLIDING SCALE.
[2019-07-12] MEDS: INSULIN LANTUS 100 UNITS/ML 10 ML VIAL SUBQ SCH (21:28)
[2019-07-13] VITALS: BP 124/59
--- NOTE | 2019-07-13 00:14 | NUR ---
HOURLY ROUNDING PATIENT SLEEPING. EASILY AROUSABLE TO SOUND. NO SIGNS OF DISTRESS NOTED. PATIENTS RESPIRATIONS EVEN AND UNLABORED ON ROOM AIR. TELE MONITOR IN PLACE. SAFETY MEASURES IN PLACE. BED IN LOW POSITION AND CALL LIGHT WITHIN REACH
--- NOTE | 2019-07-13 02:22 | NUR ---
HOURLY ROUNDING. PT SLEEPING EASILY AROUSABLE TO SOUND. NO SIGNS OF DISTRESS NOTED. RESPIRATIONS EVEN AND UNLABORED. WILL CONTINUE TO MONITOR
[2019-07-13 04:00] VITALS: BP 137/63
--- NOTE | 2019-07-13 04:30 | NUR ---
PT REFUSED TURNING, EDUCATED PT REGARDING IMPORTANCE OF TURNING TO PREVENT HER WOUNDS TO BECOME WORSE, PT STATED UNDERSTANDING BUT STILL REFUSED, PT STATED THAT SHE IS COMFORTABLE RIGHT NOW AND DOES NOT WANT TO BE TURNED.
[2019-07-13] MEDS: hydrALAZINE 25 MG TAB PO SCH ×3 (04:56→21:35)
[2019-07-13 06:36] LABS: BASOPHILS # (AUTO) 0.1 K/uL (0.00-0.22); BASOPHILS % (AUTO) 1.7 % (0.0-2.0); EOSINOPHILS # (AUTO) 0.4 K/uL (0-0.4); EOSINOPHILS % (AUTO) 5.6 % (0.0-4.0); HEMATOCRIT 35.5 % (36-48); HEMOGLOBIN 11.5 g/dL (12.0-16.0); LYMPHOCYTES # (AUTO) 1.4 K/uL (2.5-16.5); LYMPHOCYTES % (AUTO) 22.1 % (20.5-51.1); MEAN CORPUSCULAR HEMOGLOBIN 31 pg (27-31); MEAN CORPUSCULAR HGB CONC 32 g/dL (33-37); MEAN CORPUSCULAR VOLUME 94.5 fL (80-94); MONOCYTES # (AUTO) 0.6 K/uL (0.8-1.0); MONOCYTES % (AUTO) 9.4 % (1.7-9.3); NEUTROPHILS # (AUTO) 3.9 K/uL (1.8-7.7); NEUTROPHILS % (AUTO) 61.2 % (42.2-75.2); PLATELET COUNT (AUTO) 197 K/uL (140-450); RED BLOOD CELL COUNT(AUTO) 3.75 MIL/uL (4.20-5.40); RED CELL DISTRIBUTION WIDTH 15.6 % (11.6-13.7); WHITE BLOOD COUNT (AUTO) 6.3 K/uL (4.8-10.8)
[2019-07-13 06:49] LABS: ANION GAP 12.2 (8-16); CARBON DIOXIDE 28.6 mmol/L (21-32); CHLORIDE 101 mmol/L (98-107); CREATININE 2.7 mg/dL (0.6-1.3); GLUCOSE 121 mg/dL (74-106); POTASSIUM 3.8 mmol/L (3.5-5.1); SODIUM SERUM 138 mmol/L (136-145); UREA NITROGEN, BLOOD 27 mg/dL (7-18)
--- NOTE | 2019-07-13 07:26 | NUR ---
ENDORSED PATIENT TO DAYSHIFT NURSE CHRISTOPHER AT BEDSIDE FOR CONTINUITY OF CARE. PT SLEEPING EASILY AROUSABLE.
--- NOTE | 2019-07-13 07:28 | NUR ---
RECEIVED BEDSIDE REPORT FROM NIGHTSHIFT NURSE. PT RESTING IN BED. ABLE TO MAKE NEEDS KNOWN. RESPIRATIONS EVEN AND UNLABORED WITH NO SOB OR RESPIRATORY DISTRESS. SKIN WARM AND DRY TO TOUCH. IV SITE IN RIGHT AC 20G IS CLEAN, DRY, AND INTACT. SAFETY MEASURES IN PLACE. WILL CONTINUE TO MONITOR
[2019-07-13] MEDS: BLOOD GLUCOSE MONITORING 1 DEV DEV FS SCH ×4 (07:30→21:47)
--- NOTE | 2019-07-13 07:30 | NUR ---
PT BLOOD SUGAR IS 110. NO INSULIN COVERAGE NEEDED AT THIS TIME. SAFETY MEASURES IN PLACE. WILL CONTINUE TO MONITOR
[2019-07-13 08:00] VITALS: BP 127/52
[2019-07-13 08:11] LABS: MAGNESIUM 1.8 mg/dL (1.8-2.4); PHOSPHORUS 2.4 mg/dL (2.5-4.9)
[2019-07-13] MEDS: CARVEDILOL 12.5 MG TAB PO SCH ×2 (09:58→17:20)
--- NOTE | 2019-07-13 09:58 | NUR ---
ADMINISTERED SCHED MED PRESCRIBED PER MD ORDER. PT TOLERATED WELL. MEDICATION EDUCATION PERFORMED. PT VERBALIZED UNDERSTANDING. SAFETY MEASURES IN PLACE. WILL CONTINUE TO MONITOR
[2019-07-13] MEDS: LACTOBACILLUS RHAMNOSUS GG 1 EACH CAP PO SCH (10:00)
[2019-07-13] MEDS: LISINOPRIL 20 MG TAB PO SCH (10:00)
[2019-07-13] MEDS: CALCIUM CARBONATE 500 MG TAB PO SCH (10:02)
[2019-07-13] MEDS: CALCIUM ACETATE 667 MG TAB PO SCH (10:02)
[2019-07-13] MEDS: PREGABALIN 50 MG CAP PO SCH ×2 (10:04→21:34)
[2019-07-13] MEDS: VIT-B COMP/VIT-C/FOLIC ACID 1 TAB PO SCH (10:05)
[2019-07-13] MEDS: ASPIRIN 81 MG TAB.CHEW PO SCH (10:13)
[2019-07-13] MEDS: PANTOPRAZOLE 40 MG INJ VIAL IVP SCH (10:14)
[2019-07-13] MEDS: PIPERACILLIN/TAZOBACTAM 2.25 GM in DEXTROSE 5% 50 ML IV SCH ×2 (10:15→21:35)
--- NOTE | 2019-07-13 10:15 | NUR ---
ADMINISTERED SCHED MED PRESCRIBED PER MD ORDER. PT TOLERATED WELL. MEDICATION EDUCATION PERFORMED. PT VERBALIZED UNDERSTANDING. SAFETY MEASURES IN PLACE. WILL CONTINUE TO MONITOR
--- NOTE | 2019-07-13 11:30 | NUR ---
PT BLOOD SUGAR IS 141. NO INSULIN COVERAGE NEEDED AT THIS TIME. SAFETY MEASURES IN PLACE. WILL CONTINUE TO MONITOR
--- NOTE | 2019-07-13 12:15 | NUR ---
PATIENT HAS BEEN TRANSFERRED A [facility] PATIENT AND WILL NO LONGER NEED TELE MONITORING. SAFETY MEASURES IN PLACE. WILL CONTINUE TO MONITOR
--- NOTE | 2019-07-13 13:00 | NUR ---
PERFORMED WOUND CARE PRESCRIBED PER MD ORDER. PT TOLERATED WELL. SAFETY MEASURES IN PLACE WILL CONTINUE TO MONITOR.
[2019-07-13] MEDS: Z-GUARD PASTE TP SCH (13:28)
--- NOTE | 2019-07-13 13:32 | NUR ---
PT COMPLAINED OF SEVERE PAIN. PRN PAIN MEDICATION ADMINISTERED PRESCRIBED PER MD ORDER. PT TOLERATED WELL. MEDICATION EDUCATION PERFORMED. PT VERBALIZED UNDERSTANDING. SAFETY MEASURES IN PLACE. WILL CONTINUE TO MONITOR
--- NOTE | 2019-07-13 14:48 | NUR ---
MIGUELINA NOTIFIED OF SCHEDULED DIALYSIS FOR TOMORROW. MAURO LUCAS MADE AWARE.
--- NOTE | 2019-07-13 15:10 | NUR ---
HOURLY ROUNDING. PT RESTING IN BED. ABLE TO MAKE NEEDS KNOWN. RESPIRATIONS EVEN AND UNLABORED WITH NO SOB OR RESPIRATORY DISTRESS. SKIN WARM AND DRY TO TOUCH. SAFETY MEASURES IN PLACE. WILL CONTINUE TO MONITOR
[2019-07-13 16:00] VITALS: BP 126/52
--- NOTE | 2019-07-13 16:00 | NUR ---
RECEIVED CALL FROM CHEMISTRY. PT WOUND IS POSITIVE FOR PROTEUS MIRABILIS AND MDRO. RESIDENT MERCEDES WAS MADE AWARE. SAFETY MEASURES IN PLACE. WILL CONTINUE TO MONITOR
--- NOTE | 2019-07-13 16:30 | NUR ---
PT BLOOD SUGAR IS 180. INSULIN COVERAGE WILL BE NEEDED WITH DINNER. SAFETY MEASURES IN PLACE. WILL CONTINUE TO MONITOR
[2019-07-13] MEDS: INSULIN LISPRO SLIDING SCALE 100 UNITS/ML VIAL SUBQ PRN (17:22)
--- NOTE | 2019-07-13 17:27 | NUR ---
ADMINISTERED SCHED MED PRESCRIBED PER MD ORDER. PT TOLERATED WELL. MEDICATION EDUCATION PERFORMED. PT VERBALIZED UNDERSTANDING. SAFETY MEASURES IN PLACE. WILL CONTINUE TO MONITOR
--- NOTE | 2019-07-13 18:02 | NUR ---
PT EATING DINNER. NO DISTRESS NOTED. NO COMPLICATIONS OR CONCERNS AT THIS TIME. SAFETY MEASURES IN PLACE. WILL CONTINUE TO MONITOR
--- NOTE | 2019-07-13 19:15 | NUR ---
RECEIVED REPORT FROM DAY SHIFT NURSE. PATIENT AWAKE AND ALERT WATCHING TV ON BED. PATIENT IN STABLE CONDITION. WITH IV ON LEFT AC AND RIGHT HAND PATENT AND SALINE LOCKED. BREATHING EVEN AND UNALBORED. NO COMPLAINTS OF PAIN MADE AT THIS TIME. KEPT COMFORTABLE. WILL CONTINUE TO MONITOR.
--- NOTE | 2019-07-13 19:20 | NUR ---
ENDORSED AT BEDSIDE WITH NIGHTSHIFT NURSE. PT RESTING IN BED. ABLE TO MAKE NEEDS KNOWN. RESPIRATIONS EVEN AND UNLABORED WITH NO SOB OR RESPIRATORY DISTRESS. SKIN WARM AND DRY TO TOUCH. SAFETY MEASURES IN PLACE. PT IS STABLE
--- NOTE | 2019-07-13 20:46 | NUR ---
RECEIVED PATIENT ON ROOM AIR, PULSE OX SAT 94%.NO SOB NOTED. PRN HHN NOT INDICATED AT THIS TIME. PT MADE AWARE OF ORDERED MEDICATION FREQUENCY AND INSTRUCTED TO CALL NEEDED FOR SOB. NO ACUTE RESPIRATORY DISTRESS NOTED AT THIS TIME. WILL CONTINUE TO MONITOR.
[2019-07-13] MEDS: INSULIN LANTUS 100 UNITS/ML 10 ML VIAL SUBQ SCH (21:00)
[2019-07-13] MEDS: ATORVASTATIN 80 MG TAB PO SCH (21:34)
--- NOTE | 2019-07-13 21:35 | NUR ---
PATIENT BLOOD SUGAR 105. PATIENT HAS LANTUS 30 UNITS SCHEDULED. NOTIFIED MD REGARDING PATIENT BLOOD SUGAR. MD IS AWARE AND ORDER TO HOLD LANTUS FOR NOW.
--- NOTE | 2019-07-13 21:40 | NUR ---
DUE MEDICATIONS GIVEN ORDERED. PATIENT TOLERATED DRINKING MEDS. PATIENT DENIES ANY PAIN AT THIS TIME. KEPT COMFORTABLE. WILL CONTINUE TO MONITOR.
--- NOTE | 2019-07-13 23:19 | NUR ---
CHECKED PATIENT. PATIENT IS SLEEPING RESPIRATION EVEN UNLABORED ON ROOM AIR. NO DISTRESS NOTED. WILL CONTINUE TO MONITOR.
[2019-07-14] VITALS: BP 136/56
--- NOTE | 2019-07-14 00:38 | NUR ---
VITALS WERE TAKEN. PATIENT IS IN STABLE CONDITION. NO DISTRESS NOTED. WILL CONTINUE TO MONITOR.
--- NOTE | 2019-07-14 01:15 | NUR ---
ROUNDS DONE. PATIENT AWAKE, WATCHING TELEVISION. CHUCKS SOILED WITH BOWEL AND URINE. PERIANAL CARE DONE. WOUND ON SACRUM AND BUTTOCKS CLEANED, MEASUREMENTS AND PHOTO TAKEN. DRESSING CHANGED. PATIENT TOLERATED PROCEDURE. PATIENT KEPT COMFORTABLE. WILL MONITOR.
[2019-07-14] MEDS: hydrALAZINE 25 MG TAB PO SCH ×2 (04:59→12:57)
[2019-07-14 06:31] LABS: BASOPHILS # (AUTO) 0.1 K/uL (0.00-0.22); EOSINOPHILS # (AUTO) 0.3 K/uL (0-0.4); EOSINOPHILS % (AUTO) 4.9 % (0.0-4.0); HEMATOCRIT 36.3 % (36-48); HEMOGLOBIN 11.6 g/dL (12.0-16.0); LYMPHOCYTES # (AUTO) 1.5 K/uL (2.5-16.5); LYMPHOCYTES % (AUTO) 22.4 % (20.5-51.1); MEAN CORPUSCULAR HEMOGLOBIN 31 pg (27-31); MEAN CORPUSCULAR HGB CONC 32 g/dL (33-37); MEAN CORPUSCULAR VOLUME 95.2 fL (80-94); MONOCYTES # (AUTO) 0.7 K/uL (0.8-1.0); MONOCYTES % (AUTO) 10.4 % (1.7-9.3); NEUTROPHILS # (AUTO) 4.2 K/uL (1.8-7.7); NEUTROPHILS % (AUTO) 61.3 % (42.2-75.2); PLATELET COUNT (AUTO) 204 K/uL (140-450); RED BLOOD CELL COUNT(AUTO) 3.82 MIL/uL (4.20-5.40); RED CELL DISTRIBUTION WIDTH 15.8 % (11.6-13.7); WHITE BLOOD COUNT (AUTO) 6.8 K/uL (4.8-10.8)
--- NOTE | 2019-07-14 06:45 | NUR ---
BLOOD SUGAR 85. OFFERED ORANGE JUICE. NO SIGNS OF DISTRESS NOTED. WILL CONTINUE TO MONITOR.
[2019-07-14] MEDS: BLOOD GLUCOSE MONITORING 1 DEV DEV FS SCH ×3 (06:48→16:34)
[2019-07-14 06:56] LABS: ANION GAP 12.8 (8-16); CARBON DIOXIDE 27.1 mmol/L (21-32); CHLORIDE 101 mmol/L (98-107); GLUCOSE 95 mg/dL (74-106); POTASSIUM 3.9 mmol/L (3.5-5.1); SODIUM SERUM 137 mmol/L (136-145); UREA NITROGEN, BLOOD 40 mg/dL (7-18)
[2019-07-14 06:58] LABS: MAGNESIUM 1.7 mg/dL (1.8-2.4); PHOSPHORUS 2.9 mg/dL (2.5-4.9)
--- NOTE | 2019-07-14 07:05 | NUR ---
ENDORSED TO DAY SHIFT NURSE. PATIENT IN STABLE CONDITION. NO COMPLAINTS MADE AT THIS TIME.
--- NOTE | 2019-07-14 07:10 | NUR ---
RECEIVED BEDSIDE REPORT FROM NIGHT NURSE. PATIENT IN BED, ASLEEP, EASILY AROUSABLE BY NAME OR TOUCH. SKIN WARM AND DRY TO TOUCH. RESPIRATION EVEN AND UNLABORED. IV INTACT AND PATENT TO RIGHT AC AND LEFT HAND. PATIENT WITH RIGHT CHEST RUFINA CATH. PLANS OF CARE DISCUSSED. SAFETY MEASURES IN PLACE. BED IN LOW POSITION. CALL LIGHT WITHIN REACH.
[2019-07-14] MEDS ORDERED: PIPE1PDS39 IV (07:49)
[2019-07-14] MEDS ORDERED: LACT10CA PO (07:49)
[2019-07-14] MEDS ORDERED: CARV12.52 PO (07:49)
[2019-07-14 07:50] LABS: CREATININE 4.2 mg/dL (0.6-1.3)
[2019-07-14 08:00] VITALS: BP 139/59
[2019-07-14] MEDS: CARVEDILOL 12.5 MG TAB PO SCH ×2 (08:00→17:00)
[2019-07-14 08:06] LABS: FOLIC ACID 16.3 ng/mL (>3.0)
[2019-07-14] MEDS: ASPIRIN 81 MG TAB.CHEW PO SCH (08:38)
[2019-07-14] MEDS: PREGABALIN 50 MG CAP PO SCH (08:45)
[2019-07-14] MEDS: CALCIUM CARBONATE 500 MG TAB PO SCH (08:47)
[2019-07-14] MEDS: VIT-B COMP/VIT-C/FOLIC ACID 1 TAB PO SCH (08:47)
[2019-07-14] MEDS: LISINOPRIL 20 MG TAB PO SCH (09:00)
[2019-07-14] MEDS ORDERED: MAGNESIUM OXIDE 400 MG TAB PO SCH (09:00)
[2019-07-14] MEDS ORDERED: LACTOBACILLUS RHAMNOSUS GG 1 EACH CAP PO SCH (09:00)
[2019-07-14] MEDS: PIPERACILLIN/TAZOBACTAM 2.25 GM in DEXTROSE 5% 50 ML IV SCH (09:09)
[2019-07-14] MEDS: PANTOPRAZOLE 40 MG INJ VIAL IVP SCH (09:09)
--- NOTE | 2019-07-14 09:45 | NUR ---
DIALYSIS NURSE AT BEDSIDE.
--- NOTE | 2019-07-14 10:25 | NUR ---
DIALYSIS STATED THAT PATIENT IS ALTERED AND THAT PATIENT IS NOT TOLERATING DIALYSIS, OUTPUT ONLY 300ML PER DIALYSIS NURSE. BP NOTED AT 60/41. CHECKED BG NOTED @ 184. DR. URIOSTEGUI MADE AWARE. DIALYSIS IS STOPPED AT THIS TIME. PER DR. URIOSTEGUI MONITOR PATIENT AND CONTINUE WITH PLANNED DISCHARGE TO SNF.
--- NOTE | 2019-07-14 10:42 | NUR ---
DIALYSIS HAS STOPPED PER [facility] NURSE 1L NS BOLUS GIVEN TO PATIENT. PATIENT IS NOW STABLE WITH BP 145/72, ALERT AND ORIENTED 4. DR. SHADI GREY NOTIFIED.
--- NOTE | 2019-07-14 11:42 | NUR ---
PATIENT IS STABLE. ALERT AND ORIENTED X4. DENIES ANY PAIN OR DISCOMFORT. NO S/S OF DISTRESS NOTED.
[2019-07-14] MEDS: INSULIN LISPRO SLIDING SCALE 100 UNITS/ML VIAL SUBQ PRN ×2 (12:31→17:32)
[2019-07-14] MEDS: Z-GUARD PASTE TP SCH (12:58)
--- NOTE | 2019-07-14 15:00 | NUR ---
PATIENT REMAINS IN STABLE CONDITION. PATIENT AWAKE, AND VERBALLY RESPONSIVE. ORIENTED X4. PT WATCHING TV. NO DISTRESS NOTED.
[2019-07-14 16:00] VITALS: BP 109/45
--- NOTE | 2019-07-14 17:35 | NUR ---
RECEIVED CALL FROM [employer] T[employer]AS[employer]Y ACCOUNTANT. PATIENT WILL BE PICKED UP BY [facility] VIA [facility]STER TIME BETWEEN 4 HOURS FROM NOW.
--- NOTE | 2019-07-14 17:39 | NUR ---
PT EATING DINNER. NO DISTRESS NOTED.
--- NOTE | 2019-07-14 17:55 | NUR ---
RECEIVED CALL FROM [facility], [facility] LEARNING DESIGNER PATIENT AT 8PM.
--- NOTE | 2019-07-14 18:30 | NUR ---
REPORT GIVEN TO LUZ MARINA DEGROOT. PATIENT IS TRANSFERRING TO [facility] ORDERED. PATIENT IS STABLE. PATIENT WILL BE PICKED UP BY [facility] @ 1999 DISCUSSED WITH [facility].
--- NOTE | 2019-07-14 19:00 | NUR ---
[facility] TRANSPORT CAME. W/ PAPERS ALREADY SIGNED BY PATIENT. ANTIBIOTIC LAST GIVEN AND ENDORSED TO NURSE MIKAYLA. TRANSPORTED VIA GURNEY. TO [facility] PT IN STABLE CONDITION, VITAL SIGNS WNL. BS 148,PT CONTACT PRECAUTION FOR MDRO URINE INFORMED [facility]. Addendum: 07/15/19 at 0259 by Nadiya Back RN [facility] TIME TO 1999
--- NOTE | 2019-07-14 19:15 | NUR ---
REPORT GIVEN TO NIGHT NURSE FOR CONTINUITY OF CARE. PATIENT IN STABLE CONDITION.
--- NOTE | 2019-07-14 19:16 | NUR ---
RECEIVED BEDSIDE REPORT FROM AM NURSE. PATIENT IN BED, ASLEEP, EASILY AROUSABLE BY NAME OR TOUCH. SKIN WARM AND DRY TO TOUCH. RESPIRATION EVEN AND UNLABORED. IV INTACT AND PATENT TO RIGHT AC AND LEFT HAND. PATIENT WITH RIGHT CHEST RUFINA CATH. PLANS OF CARE DISCUSSED. SAFETY MEASURES IN PLACE. BED IN LOW POSITION. CALL LIGHT WITHIN REACH
[2019-07-14 19:30] VITALS: BP 127/43
== END 2019-07-14 20:10 | DRG 177 ==
LOC: MED 18:34 → MTU 22:12
PROVIDERS: ADMIT General Practice; ATTEND General Practice
PROC: 5A1D70Z Performance of Urinary Filtration, Intermittent, Less than 6 Hours Per Day (ICD-10-PCS; principal; 2019-07-10)
PROC: 5A1D70Z Performance of Urinary Filtration, Intermittent, Less than 6 Hours Per Day (ICD-10-PCS; 2019-07-12)
PROC: 5A1D70Z Performance of Urinary Filtration, Intermittent, Less than 6 Hours Per Day (ICD-10-PCS; 2019-07-14)
DX: J69.0 Pneumonitis due to inhalation of food and vomit (principal); G93.41 Metabolic encephalopathy; N18.6 End stage renal disease; I50.43 Acute on chronic combined systolic (congestive) and diastolic (congestive) heart failure; I21.A1 Myocardial infarction type 2; J96.01 Acute respiratory failure with hypoxia; I13.2 Hypertensive heart and chronic kidney disease with heart failure and with stage 5 chronic kidney disease, or end stage renal disease; N39.0 Urinary tract infection, site not specified; D68.59 Other primary thrombophilia; E83.39 Other disorders of phosphorus metabolism; I95.9 Hypotension, unspecified; E83.42 Hypomagnesemia; E83.51 Hypocalcemia; I34.0 Nonrheumatic mitral (valve) insufficiency; M19.90 Unspecified osteoarthritis, unspecified site; D64.9 Anemia, unspecified; E11.40 Type 2 diabetes mellitus with diabetic neuropathy, unspecified; L89.159 Pressure ulcer of sacral region, unspecified stage; R22.1 Localized swelling, mass and lump, neck; E11.22 Type 2 diabetes mellitus with diabetic chronic kidney disease; K21.9 Gastro-esophageal reflux disease without esophagitis; I45.10 Unspecified right bundle-branch block; I16.0 Hypertensive urgency; R51 Headache; M06.9 Rheumatoid arthritis, unspecified; E11.51 Type 2 diabetes mellitus with diabetic peripheral angiopathy without gangrene; E78.5 Hyperlipidemia, unspecified; I25.10 Atherosclerotic heart disease of native coronary artery without angina pectoris; Z99.2 Dependence on renal dialysis; Z88.8 Allergy status to other drugs, medicaments and biological substances; Z88.0 Allergy status to penicillin; Z91.013 Allergy to seafood; Z79.899 Other long term (current) drug therapy; Z95.1 Presence of aortocoronary bypass graft; Z90.49 Acquired absence of other specified parts of digestive tract; Z89.512 Acquired absence of left leg below knee; Z89.511 Acquired absence of right leg below knee; Z83.3 Family history of diabetes mellitus; Z90.710 Acquired absence of both cervix and uterus; I25.2 Old myocardial infarction; Z87.440 Personal history of urinary (tract) infections; Z79.82 Long term (current) use of aspirin
CPT/HCPCS: 36415; 70450; 71045; 74018; 80048; 80053; 81001; 82150; 82607; 82728; 82746; 82948; 83036; 83540; 83605; 83690; 83735; 83880; 84100; 84134; 84439; 84443; 84484; 85025; 85045; 85610; 85730; 87040; 87070; 87081; 87086; 87186; 87804; 93005; 94640; 97161-GP; 99285; C1758; C9113; J0360; J1170; J1644; J1815; J2543; J7030; J7060; Q0092

== ENCOUNTER 2019-11-09 20:09 | Emergency (ER) | payer OTHER, MEDICAID ==
[~2019-11-09] VITALS: Ht 165.1 cm; Wt 68.0 kg
[~2019-11-09 20:09] MED LIST changes: +ASPI-1205 PO; +CARV12.52 PO; +CEFE1PDS IJ; +CHLO118S2 TP; +CLIN300C2 IV; +HUMSLIDE SUBQ; -INSU100S53 SC; +LACT10CA PO; -METO25TA PO; +MUPI2CRE22 NS
[2019-11-09 20:10] VITALS: BP 137/55
--- NOTE | 2019-11-09 20:16 | NUR ---
PT ENMANUEL GRACES. TAKEN TO BED 4
--- NOTE | 2019-11-09 20:19 | NUR ---
Dr. Keen examining patient.
--- NOTE | 2019-11-09 20:45 | NUR ---
78 Y/O FEMALE ENMANUEL BENTON FROM [facility] WITH C/O RIGHT HIP PAIN. PT STATES SHE FELL OUT OF HER WHEELCHAIR X 3 DAYS AGO AND HAS HAD CONSTANT PAIN 10/10 SINCE FALL. A&O X3. PT HAS BKA. DIALYSIS (M,F) PT. BFS: 78. PT STATES SHE WAS EATING AND TRIED TO GRAB SOMETHING AND FELL OUT OF HER CHAIR. PT STATES THE PAIN HAS BEEN GETTING PROGRESSIVELY WORSE. PT DENIES N/V/D/FEVER. PT STATES SHE HAS SOME TINGLING IN LEGS BUT STATES THAT SHE HAD THAT PRIOR TO FALL. PT BREATHING EVEN AND UNLABORED. VSS. PT RESTING IN BED LOCKED AND IN LOWEST POSITION ,HOB ELEVATED, SIDE RAIL X2 FOR PT SAFETY. ALLERGY: BENADRYL; PENICILLINS; SHELLFISH CONTAINING PRODUCTS PMH: ESRD; ACUTE RESPIRATORY FAILURE; DYSPHAGIA; METABOLIC ENCEPHALOPATHY
--- NOTE | 2019-11-09 20:45 | NUR ---
PT DIALYSIS SHUNT IS LOCATED ON RIGHT SIDE.
[2019-11-09] MEDS ORDERED: VITA1TAB44 PO (20:46)
[2019-11-09] MEDS ORDERED: MIRABULK PO (20:46)
[2019-11-09] MEDS ORDERED: CALCIUM CARB PO (20:49)
[2019-11-09] MEDS ORDERED: LACTOBACILLUS PO (20:50)
[2019-11-09] MEDS ORDERED: PUL.5N INH (20:53)
[2019-11-09] MEDS ORDERED: LYR50 PO (20:53)
[2019-11-09] MEDS ORDERED: ACET-2619 PO (20:54)
[2019-11-09] MEDS ORDERED: FLEET ENEMA RC (21:03)
[2019-11-09] MEDS ORDERED: ALBUTERO INH (21:07)
[2019-11-09] MEDS ORDERED: LIP80 PO (21:09)
--- NOTE | 2019-11-09 22:13 | NUR ---
PT TAKEN TO CT
[2019-11-09 22:22] LABS: BASOPHILS # (AUTO) 0.1 K/uL (0.00-0.22); BASOPHILS % (AUTO) 1.7 % (0.0-2.0); EOSINOPHILS # (AUTO) 0.3 K/uL (0-0.4); EOSINOPHILS % (AUTO) 4.3 % (0.0-4.0); HEMATOCRIT 37.2 % (36-48); HEMOGLOBIN 11.5 g/dL (12.0-16.0); LYMPHOCYTES # (AUTO) 1.6 K/uL (2.5-16.5); LYMPHOCYTES % (AUTO) 21.5 % (20.5-51.1); MEAN CORPUSCULAR HEMOGLOBIN 30 pg (27-31); MEAN CORPUSCULAR HGB CONC 31 g/dL (33-37); MEAN CORPUSCULAR VOLUME 96.8 fL (80-94); MONOCYTES # (AUTO) 0.8 K/uL (0.8-1.0); MONOCYTES % (AUTO) 10.7 % (1.7-9.3); NEUTROPHILS # (AUTO) 4.5 K/uL (1.8-7.7); NEUTROPHILS % (AUTO) 61.8 % (42.2-75.2); PLATELET COUNT (AUTO) 208 K/uL (140-450); RED BLOOD CELL COUNT(AUTO) 3.84 MIL/uL (4.20-5.40); RED CELL DISTRIBUTION WIDTH 20.5 % (11.6-13.7); WHITE BLOOD COUNT (AUTO) 7.3 K/uL (4.8-10.8)
--- NOTE | 2019-11-09 22:24 | NUR ---
PT RETURN FROM CT
[2019-11-09 22:35] LABS: ANION GAP 19.6 (8-16); CARBON DIOXIDE 20.9 mmol/L (21-32); CHLORIDE 106 mmol/L (98-107); GLUCOSE 85 mg/dL (74-106); POTASSIUM 4.5 mmol/L (3.5-5.1); SODIUM SERUM 142 mmol/L (136-145)
--- NOTE | 2019-11-09 22:39 | NUR ---
PT SON KIMMIE, CALLED RE: UPDATE ON PT STATUS KIMMIE CONTANT INFO [phone]
[2019-11-09 22:41] LABS: PROTHROMBIN TIME 10.6 secs (10.8-13.4)
[2019-11-09 22:44] LABS: UREA NITROGEN, BLOOD 66 mg/dL (7-18)
[2019-11-09 22:45] LABS: CREATININE 5.7 mg/dL (0.6-1.3)
--- NOTE | 2019-11-09 22:45 | NUR ---
CRITICAL LAB BUN 66 , CREATININE 5.7 , ERMD MADE AWARE.
--- NOTE | 2019-11-09 23:09 | NUR ---
CALL FROM [place] [facility]. TOLD WAS CALLED WITH A TRANSPORT ETA FOR PT AT 60 MIN
--- NOTE | 2019-11-09 23:34 | NUR ---
SPOKE W/ PT SON ISSA AND UPDATED THAT PT WILL BE SENT BACK TO [facility].
--- NOTE | 2019-11-10 00:11 | NUR ---
[facility] AT BEDSIDE
--- NOTE | 2019-11-10 00:21 | NUR ---
spoke w/ Aba RN AT [facility] REGUARDING PT STATUS AND PT BEING SENT BACK TO FACILITY.
[2019-11-10 00:23] VITALS: BP 136/64
--- NOTE | 2019-11-10 00:23 | NUR ---
Patient discharged with v/s stable. Written and verbal after care instructions given and explained. Patient verbalized understanding. Ambulance Transport with to intermediate. All questions addressed prior to discharge. Advised to follow up with PMD.
--- NOTE | 2019-11-10 00:30 | NUR ---
PT TAKEN BY [facility] TO [facility]
== END 2019-11-10 00:23 | disposition home or self-care (01) ==
LOC: MED 20:09
DX: M25.551 Pain in right hip (principal); E11.22 Type 2 diabetes mellitus with diabetic chronic kidney disease; I12.0 Hypertensive chronic kidney disease with stage 5 chronic kidney disease or end stage renal disease; N18.6 End stage renal disease; Z99.2 Dependence on renal dialysis; Z89.511 Acquired absence of right leg below knee; Z89.512 Acquired absence of left leg below knee; Z79.4 Long term (current) use of insulin; Z79.899 Other long term (current) drug therapy; Z88.0 Allergy status to penicillin; Z91.013 Allergy to seafood; Z88.8 Allergy status to other drugs, medicaments and biological substances
CPT/HCPCS: 36415; 72192; 80048; 85025; 85610; 99284

== ENCOUNTER 2020-01-24 11:27 | Emergency (ER) | payer OTHER, MEDICAID ==
[~2020-01-24] VITALS: Ht 165.1 cm; Wt 62.6 kg
[~2020-01-24 11:27] MED LIST changes: +ACET-2619 PO; +ALBUTERO INH; -ASPI-1205 PO; +CALCIUM CARB PO; -CARV12.52 PO; -CEFE1PDS IJ; -CHLO118S2 TP; -CLIN300C2 IV; -CLON0.1T42 PO; +FLEET ENEMA RC; +LACTOBACILLUS PO; +LIP80 PO; +PUL.5N INH
--- NOTE | 2020-01-24 11:27 | NUR ---
PATIENT [facility] BLS TO ER BED 11
--- NOTE | 2020-01-24 11:32 | NUR ---
PT BIBA FROM [facility] S/P UNWITNESSED FALL THIS MORNING AROUND 7AM; PT WAS FOUND HALF ON BED WITH HEAD ON FLOOR. PT C/O HEAD PAIN AFTER THE FALL THIS MORNING AND CHRONIC JHON HANDS PAIN. PT DENIES ANY LOC. AAOX2 (SELF, PLACE). NO HEMOTOMA OR DEFORMITIES NOTED ON THE HEAD OR FACE. SWAN NECK DEFORMITY NOTICED ON JHON FINGERS. PT IS ON DIALYSIS ON AND [place], DIALYSIS LINE IS IN PLACE ON THE RIGHT-SIDED CHEST WITH CLEAN DRESSING COVERED. PMH: DM, HTN, DIALYSIS, METABOLIC ENCEPHALOPATHY, SEPSIS, ESRD, ANEMIA, HF, PVD, MUSCLE WEAKNESS
[2020-01-24 11:35] VITALS: BP 182/86
--- NOTE | 2020-01-24 11:50 | NUR ---
SPOKE WITH PT'S SON MARGO,KIMMIE @ [phone]. CONFIRMED THAT PT IS ON FULL CODE, AND PT HAD ONE EPISODE OF ALOC IN THE DIALYSIS CENTER AND WAS SENT TO THE HOSPITAL.
[2020-01-24] MEDS ORDERED: BISA-213 RC (11:55)
[2020-01-24] MEDS ORDERED: ALBU0.0912 INH (11:55)
[2020-01-24] MEDS ORDERED: HYDR-5122 PO (11:55)
[2020-01-24] MEDS ORDERED: PHO667 PO (11:55)
--- NOTE | 2020-01-24 12:02 | NUR ---
DR. DODGE IS EVALUATING PT AT BEDSIDE.
--- NOTE | 2020-01-24 12:06 | NUR ---
SPOKE WITH PT'S SON MARGOKIMMIE @ [phone] REGARDING PT IS GOING TO DO HEAD CT SCAN. KIMMIE ARAGON AGREED WITH THE TX.
--- NOTE | 2020-01-24 12:38 | NUR ---
PT HAS BEEN TAKING BACK FROM CT SCAN VIA [facility].
--- NOTE | 2020-01-24 13:19 | NUR ---
DISCHARGE PAPERWORK UP, [facility] CONTACTED TO PROGRAM OR PROJECT ADMINISTRATOR PATIENT. NEXT PROGRAM OR PROJECT ADMINISTRATOR TIME IS 1500.
--- NOTE | 2020-01-24 13:30 | NUR ---
SPOKE WITH PT'S SON KIMMIE ARAGON @ [phone] TO GIVE PT'S MEDICAL UPDATES AND CT SCAN RESULTS.
--- NOTE | 2020-01-24 13:39 | NUR ---
Patient to be transferred back to [facility]. Patient belongings inventoried and will be sent with patient. Copy of CT SCAN reports, priscription, discharge paperwork to be sent with patient. Report called to Juan J at receiving facility. Transportation service has been called for transfer. ETA is 3pm today.
--- NOTE | 2020-01-24 14:10 | NUR ---
pt is resting in the bed with vss showed on the monitor. Will continue monitoring pt's vs.
[2020-01-24 14:57] VITALS: BP 144/68
--- NOTE | 2020-01-24 14:57 | NUR ---
Pj nevarez in [facility] - 01/24/20 at 1503 by ARNOLD PT HAS JAKOB TRANSFERRING BACK TO [facility] BY [facility].
--- NOTE | 2020-01-24 14:57 | NUR ---
PT HAS BEEN TRANSFERRING BACK TO [facility] BY [facility].
== END 2020-01-24 14:57 | disposition home or self-care (01) ==
LOC: MED 11:27
DX: S13.4XXA Sprain of ligaments of cervical spine, initial encounter (principal); E11.22 Type 2 diabetes mellitus with diabetic chronic kidney disease; I12.0 Hypertensive chronic kidney disease with stage 5 chronic kidney disease or end stage renal disease; N18.6 End stage renal disease; R51 Headache; Z99.2 Dependence on renal dialysis; Z88.0 Allergy status to penicillin; Z88.8 Allergy status to other drugs, medicaments and biological substances; Z91.013 Allergy to seafood; Z89.511 Acquired absence of right leg below knee; Z89.512 Acquired absence of left leg below knee; Z79.899 Other long term (current) drug therapy; W06.XXXA Fall from bed, initial encounter; Y93.89 Activity, other specified; Y92.89 Other specified places as the place of occurrence of the external cause; Y99.8 Other external cause status
CPT/HCPCS: 70450; 72125; 99285